=== PATIENT | female | born 1945 | race Caucasian/White ===

== ENCOUNTER → 2016-04-18 | Outpatient (CLI) | payer MEDICARE, OTHER ==
--- NOTE | 2016-04-19 07:52 | STRESS TEST ---
PROCEDURE PHYSICIAN: ANURAG RESENDIZ DATE OF PROCEDURE: 04/18/2016 EXERCISE STRESS ECHOCARDIOGRAM REPORT: REFERRING PHYSICIAN: Dr. Pastor. INDICATION: Chest pain. BASELINE HEART RATE: 91 BASELINE BLOOD PRESSURE: 150/100 BASELINE EKG: Sinus rhythm with no ischemic changes. IN SUMMARY: The patient started exercising with a baseline heart rate, blood pressure and EKG mentioned above. She was able to exercise for a total of 3 minutes and 30 seconds on standard Miguel protocol, achieving maximum heart rate of 146, which is 97% of maximum expected heart rate. With peak exercise level, EKG was showing minimal nondiagnostic changes. Blood pressure was 203/99. During recovery the patient had occasional PVCs. Heart rate and blood pressure returned to baseline. Echocardiographic images were acquired and reviewed in the parasternal long axis, short axis, apical 4 chamber and 2 chamber views. Review of the images showed normal left ventricular size with normal contractility with no ischemic changes. IN CONCLUSION: 1. Poor exercise tolerance a total of 3 minutes 30 seconds on standard Miguel protocol. Total of 4.6 METs achieving 97% of maximum expected heart rate. 2. Hypertensive response to exercise returned to baseline during recovery. 3. Occasional PVCs noted early in recovery. 4. No ischemic changes on EKG or echocardiographic images. 5. The patient was started on lisinopril in addition to her metoprolol. We will continue monitoring her blood pressure. Job ID: [id number] Dictated Date: 04/18/2016 17:54:44 Link Trainer Mechanic Date: 04/19/2016 07:48:46 / josh
--- NOTE | 2016-04-19 08:39 | ECHOCARDIOGRAPHY REPORT ---
PROCEDURE PHYSICIAN: ANURAG RESENDIZ DATE OF PROCEDURE: 04/18/2016 TWO DIMENSIONAL ECHOCARDIOGRAM REPORT PRIMARY PHYSICIAN: OTHER PHYSICIAN: REFERRING PHYSICIAN: Dr. Pastor ORDERING PHYSICIAN: INDICATION FOR THE PROCEDURE: Chest pain. MEASUREMENTS DERIVED VALUES LV DIAMETER (LAX) NORMALS NORMALS Diastolic 3.1 (3.6-5.2) Eject. Fract. 60% (60%+/-6%) Systolic (2.3-3.9) Diastolic Vol. % Shortening (0.22-0.42) Systolic Vol. Aortic Root IVS THICKNESS Diastolic 0.9 (0.6-1.1) LVPW THICKNESS Diastolic 0.9 (0.6-1.1) LA DIAMETER Systolic 2.8 (2.1-3.7) FINDINGS: 1. Technical quality is good. 2. The left ventricle is normal in size with normal contractility. Systolic function appeared to be normal. Estimated ejection fraction is 60%. 3. The left atrium is normal in size. No clot or thrombus were seen within the left atrium. 4. The right atrium and right ventricle are normal in size. No clot or thrombus were seen within the right side. 5. Mitral valve is normal in morphology with mild mitral regurgitation noted by color Doppler flow. No mitral valve prolapse. No mitral valve stenosis. 6. Aortic valve is trileaflet with normal opening and closing pattern. No significant aortic stenosis or regurgitation was seen. 7. Tricuspid valve is normal in morphology with mild tricuspid regurgitation noted by color Doppler flow. Doppler across tricuspid valve estimated pulmonary artery pressure of 32+ right atrial pressure. 8. Pulmonic valve is functioning normally. 9. No pericardial effusion. IN CONCLUSION: 1. Normal left ventricular size and systolic function. Estimated ejection fraction 60%. 2. Mild mitral and tricuspid regurgitation. 3. Pulmonary hypertension with estimated pulmonary artery pressure of 40 mmHg. Job ID: [id number] Dictated Date: 04/18/2016 17:52:44 Director Inpatient Headache Program Date: 04/19/2016 08:36:19 / josh
== END ==
LOC: CARD 13:01
PROVIDERS: ATTEND Physician Assistant
DX: R07.89 Other chest pain (principal); I10 Essential (primary) hypertension; R00.2 Palpitations; K21.9 Gastro-esophageal reflux disease without esophagitis
CPT/HCPCS: 93306; 93351

== ENCOUNTER → 2017-05-06 | Outpatient (CLI) | payer MEDICARE, OTHER ==
--- NOTE | 2017-05-07 15:17 | Physician Query-Final Dx ---
ADAN LOERA 05/07/17 1517: Clinic Account Progress/Dx Physician Query: Please give diagnosis Date of Service May 06, 2017 at 10:32 JESSY DELGADO DO 05/08/17 0703: Clinic Account Progress/Dx DIAGNOSIS: Diagnosis Vaginal infection ADAN LOERA May 07, 2017 15:17 JESSY DELGADO DO May 08, 2017 07:03
== END ==
LOC: LAB 10:32
PROVIDERS: ATTEND Family Medicine
DX: N76.0 Acute vaginitis (principal)
CPT/HCPCS: 36415; 87491; 87591

== ENCOUNTER → 2017-05-20 | Day surgery (SDC) | payer MEDICARE, OTHER ==
[2017-05-20] VITALS (10 sets, daily range): BP systolic 99–156; BP diastolic 60–89
[~2017-05-20] VITALS: Ht 165.1 cm; Wt 64.4 kg
[~2017-05-20] MED LIST: ALPR0.5T7; ASPIRIN 81 MG CHEW (CHILDREN'S ASA) PO ONE; FLUC150T2; HEParin (CATH LAB) 2,000 ML IV ONE; HEParin 1000 UNIT/ML (10ML VIAL) FOR BOLUS ONE; LIDOCAINE 1% INJ 50 ML (XYLOCAINE) VIAL ONE; METO-387; MIDAZOLAM 5 MG/5 ML (VERSED) VIAL ONE; NITRO DRIP 25000 MCG/D5W 0 ML IV ONE; NITROGLYCERIN 0.4 MG SL TABS BTL 25'S SL PRN; NS IV 1000 ML 1,000 ML IV SCH; NS IV 1000 ML 1,000 ML ONE; PANT40TA3; PATIENT MAY USE OWN MEDS, ALL PO SCH; SUCR1TAB; VERAPAMIL 5 MG/2 ML (CALAN) VIAL IV ONE; fentaNYL INJECTION 100 MCG/2 ML AMP ONE
[2017-05-20 07:58] LABS: BASOPHILS % (AUTO) 1 % (0-10); EOSINOPHILS # (AUTO) 0.2 10^3/uL (0.0-0.3); EOSINOPHILS % (AUTO) 2 % (0-10); HEMATOCRIT 45 % (35-52); HEMOGLOBIN 15.9 G/DL (11.5-16.0); LYMPHOCYTES # (AUTO) 1.9 X 10^3 (1.0-4.0); LYMPHOCYTES % (AUTO) 25 % (12-44); MEAN CORPUSCULAR HEMOGLOBIN 33 PG (25-34); MEAN CORPUSCULAR HGB CONC 35 G/DL (32-36); MEAN CORPUSCULAR VOLUME 93 FL (80-99); MEAN PLATELET VOLUME 10.1 FL (7.4-10.4); MONOCYTES # (AUTO) 0.9 X 10^3 (0.0-1.0); MONOCYTES % (AUTO) 12 % (0-12); NEUTROPHILS # (AUTO) 4.7 X 10^3 (1.8-7.8); NEUTROPHILS % (AUTO) 61 % (42-75); PLATELET COUNT 238 10^3/uL (130-400); RED BLOOD COUNT 4.88 10^6/uL (4.35-5.85); RED CELL DISTRIBUTION WIDTH 13.1 % (10.0-14.5); WHITE BLOOD COUNT 7.7 10^3/uL (4.3-11.0)
[2017-05-20 08:23] LABS: ALANINE AMINOTRANSFERASE 24 U/L (0-55); ALBUMIN 4.3 GM/DL (3.2-4.5); ALKALINE PHOSPHATASE 95 U/L (40-136); BILIRUBIN,TOTAL 0.5 MG/DL (0.1-1.0); BUN/CREATININE RATIO 22; CALCIUM 9.6 MG/DL (8.5-10.1); CARBON DIOXIDE 27 MMOL/L (21-32); CHLORIDE 104 MMOL/L (98-107); CREATININE SERUM 0.76 MG/DL (0.60-1.30); GFR ESTIMATED > 60; GLUCOSE 112 MG/DL (70-105); POTASSIUM 3.8 MMOL/L (3.6-5.0); SODIUM 138 MMOL/L (135-145); TOTAL PROTEIN 7.5 GM/DL (6.4-8.2)
[2017-05-20 09:04] LABS: BILIRUBIN,URINE NEGATIVE (NEGATIVE); CLARITY,URINE CLEAR; COLOR,URINE YELLOW; GLUCOSE, URINE (UA) NEGATIVE (NEGATIVE); KETONES,URINE NEGATIVE (NEGATIVE); LEUKOCYTE ESTERASE ,URINE 2+ (NEGATIVE); NITRITE,URINE NEGATIVE (NEGATIVE); PH,URINE 6 (5-9); PROTEIN,URINE NEGATIVE (NEGATIVE); UROBILINOGEN,URINE NORMAL (NORMAL)
[2017-05-20 09:27] LABS: BACTERIA,URINE FEW /HPF
[2017-05-20 10:46] LABS: TSH (THYROID ANALYZER) 0.65 UIU/ML (0.35-4.94)
--- NOTE | 2017-05-20 11:22 | ED Chest Pain ---
General Chief Complaint: Cardiac/General Problems Stated Complaint: BP HIGH,DIZZY Nursing Triage Note: pt reports she took her bp last night and it was elevated. pt states she woke up this morning and it was still elvated and she started to have dizziness, chest tightness, and l arm numbness. pt reports she is currently going through a divorce and having a lot of life changes recently. Nursing Sepsis Screen: No Definite Risk Source: patient, old records Exam Limitations: no limitations History of Present Illness Date Seen by Provider: May 20, 2017 Time Seen by Provider: 07:19 Initial Comments This 72-year-old woman presents to the emergency room with concerns about high blood pressure, chest discomfort, and dizziness. She reports being overly stressed recently as she has had a recent divorce. She takes metoprolol and had low certain added by sample given by Dr. Gr sometime ago. Last night her blood pressure was in the 160s/100s. She decided to resume the losartan. This morning she was feeling dizzy with tightness over her chest. She had tingling in the left arm. She rechecked her blood pressure and found it to be 174/120. She became concerned and presented to the emergency room. She also reports having a headache yesterday after mowing the lawn. She does admit to having 2-3 mixed drinks per night over the past couple of months. She states the tingling in her left arm is now gone her chest still feels tight. Dr. Delgado is her primary care provider and Dr. Gr is her set up machinist. Time of onset of pain this morning was 05:00. Allergies and Home Medications Allergies Coded Allergies: Penicillins (Unverified Allergy, Unknown, 07/29/15) levofloxacin (Unverified Allergy, Unknown, 07/29/15) sulfamethoxazole (Unverified Allergy, Unknown, 07/29/15) trimethoprim (Unverified Allergy, Unknown, 07/29/15) Patient Home Medication List Home Medication List Reviewed: Yes Review of Systems Constitutional: no symptoms reported EENTM: No Symptoms Reported Respiratory: No Symptoms Reported Cardiovascular: See HPI Gastrointestinal: No Symptoms Reported Genitourinary: No Symptoms Reported Musculoskeletal: no symptoms reported Skin: no symptoms reported Psychiatric/Neurological: See HPI Endocrine: No Symptoms Reported Past Oqzejqp-Qulphj-Vwupoc Hx Patient Social History Alcohol Use: Regular Use Alcohol Beverage of Choice: Vodka Recreational Drug Use: No Smoking Status: Current Someday Smoker Type Used: Cigarettes 2nd Hand Smoke Exposure: No Recent Foreign Travel: No Contact w/Someone Who Travel: No Recent Infectious Disease Expo: No Physical Abuse: No Sexual Abuse: No Mistreated: No Fear: No Surgeries History of Surgeries: Yes (cystocele, skin ca removal) Surgeries: Hysterectomy Respiratory History of Respiratory Disorde: No Cardiovascular History of Cardiac Disorders: Yes Cardiac Disorders: Hypertension Neurological History of Neurological Disord: No Reproductive System RN MANAGER History: Hysterectomy Genitourinary History of Genitourinary Disor: No Gastrointestinal History of Gastrointestinal Di: Yes Gastrointestinal Disorders: Gastroesophageal Reflux, Ulcer Musculoskeletal History of Musculoskeletal Dis: No Endocrine History of Endocrine Disorders: Yes (prediabetic controlled with diet) Cancer History of Cancer: Yes (skin excised from back) Cancer: Skin Psychosocial History of Psychiatric Problem: Yes Behavioral Health Disorders: Anxiety Suicide Risk Score: 0 Blood Transfusions History of Blood Disorders: No Adverse Reaction to a Blood Tr: No Physical Exam Vital Signs Vital Signs - First Documented 05/20/17 07:54 Temp 96.3 Pulse 75 Resp 20 B/P (MAP) 144/73 (96) Pulse Ox 98 Capillary Refill : Less Than 3 Seconds General Appearance: WD/WN, Mild Distress (Tearful and anxious) HEENT: PERRL/EOMI, Normal ENT Inspection Neck: Normal Inspection Respiratory: Chest Non Tender, Lungs Clear, Normal Breath Sounds, No Accessory Muscle Use, No Respiratory Distress Cardiovascular: Regular Rate, Rhythm, No Edema, No Murmur, Normal Peripheral Pulses Gastrointestinal: Normal Bowel Sounds, Non Tender, Soft Extremity: Normal Inspection, No Calf Tenderness, No Pedal Edema Neurologic/Psychiatric: Alert, Oriented x3, No Motor/Sensory Deficits, pre assembly wirer II- XII Norm as Tested, Other (Tearful and anxious) Skin: Normal Color, Warm/Dry Progress/Results/Core Measures Results/Orders Lab Results Laboratory Tests Test 05/20/17 07:36 05/20/17 08:54 Range/Units White Blood Count 7.7 4.3-11.0 10^3/uL Red Blood Count 4.88 4.35-5.85 10^6/uL Hemoglobin 15.9 11.5-16.0 G/DL Hematocrit 45 35-52 % Mean Corpuscular Volume 93 80-99 FL Mean Corpuscular Hemoglobin 33 25-34 PG Mean Corpuscular Hemoglobin Concent 35 32-36 G/DL Red Cell Distribution Width 13.1 10.0-14.5 % Platelet Count 238 130-400 10^3/uL Mean Platelet Volume 10.1 7.4-10.4 FL Neutrophils (%) (Auto) 61 42-75 % Lymphocytes (%) (Auto) 25 12-44 % Monocytes (%) (Auto) 12 0-12 % Eosinophils (%) (Auto) 2 0-10 % Basophils (%) (Auto) 1 0-10 % Neutrophils # (Auto) 4.7 1.8-7.8 X 10^3 Lymphocytes # (Auto) 1.9 1.0-4.0 X 10^3 Monocytes # (Auto) 0.9 0.0-1.0 X 10^3 Eosinophils # (Auto) 0.2 0.0-0.3 10^3/uL Basophils # (Auto) 0.0 0.0-0.1 10^3/uL Prothrombin Time 12.9 12.2-14.7 SEC INR Comment 1.0 0.8-1.4 Activated Partial Thromboplast Time 29 24-35 SEC Sodium Level 138 135-145 MMOL/L Potassium Level 3.8 3.6-5.0 MMOL/L Chloride Level 104 98-107 MMOL/L Carbon Dioxide Level 27 21-32 MMOL/L Anion Gap 7 5-14 MMOL/L Blood Urea Nitrogen 17 7-18 MG/DL Creatinine 0.76 0.60-1.30 MG/DL Estimat Glomerular Filtration Rate > 60 BUN/Creatinine Ratio 22 Glucose Level 112 H 70-105 MG/DL Calcium Level 9.6 8.5-10.1 MG/DL Magnesium Level 2.0 1.8-2.4 MG/DL Total Bilirubin 0.5 0.1-1.0 MG/DL Aspartate Amino Transf (AST/SGOT) 22 5-34 U/L Alanine Aminotransferase (ALT/SGPT) 24 0-55 U/L Alkaline Phosphatase 95 40-136 U/L Troponin I < 0.30 <0.30 NG/ML Total Protein 7.5 6.4-8.2 GM/DL Albumin 4.3 3.2-4.5 GM/DL TSH [place] Testing 0.65 0.35-4.94 UIU/ML Serum Alcohol < 10 <10 MG/DL Urine Color YELLOW Urine Clarity CLEAR Urine pH 6 5-9 Urine Specific [place] 1.010 L 1.016-1.022 Urine Protein NEGATIVE NEGATIVE Urine Glucose (UA) NEGATIVE NEGATIVE Urine Ketones NEGATIVE NEGATIVE Urine Nitrite NEGATIVE NEGATIVE Urine Bilirubin NEGATIVE NEGATIVE Urine Urobilinogen NORMAL NORMAL MG/DL Urine Leukocyte Esterase 2+ H NEGATIVE Urine RBC (Auto) 1+ H NEGATIVE Urine RBC 2-5 H /HPF Urine WBC 5-10 H /HPF Urine Squamous Epithelial Cells 10-25 H /HPF Urine Crystals NONE /LPF Urine Bacteria FEW H /HPF Urine Casts NONE /LPF Urine Mucus SMALL H /LPF Urine Culture Indicated YES Micro Results Microbiology 05/20/17 Urine Culture - Preliminary, Resulted Group B Streptococci Proteus species See Comments My Orders Orders - SHAHID ELENA MD Cbc With Automated Diff (05/20/17 07:19) Comprehensive Metabolic Panel (05/20/17 07:19) Magnesium (05/20/17 07:19) Ua Culture If Indicated (05/20/17 07:19) Saline Lock/Iv-Start (05/20/17 07:19) Ekg Tracing (05/20/17 07:19) Monitor-Rhythm Ecg Trace Only (05/20/17 07:19) Alcohol (05/20/17 08:52) Thyroid Analyzer (05/20/17 08:52) Troponin I (05/20/17 08:52) Urine Culture (05/20/17 08:54) Aspirin Chewable Tablet (Baby Aspirin Ch (05/20/17 11:15) Nitroglycerin 0.4 Mg Btl 25's (Nitrostat (05/20/17 11:15) Medications Given in ED Vital Signs/I&O Vital Sign - Last 12Hours 05/20/17 07:54 Temp 96.3 Pulse 75 Resp 20 B/P (MAP) 144/73 (96) Pulse Ox 98 Blood Pressure Mean: 96 Progress Note : Time: 11:21 Progress Note Workup in the emergency room was unremarkable. Blood pressure had improved to 130s over 80s. Dr. Gr was consulted to help determine disposition. He presented to the emergency room and nitroglycerin was administered. Pain improved with nitroglycerin. The decision was made to take her directly to cardiac Student Success Coach. ECG Initial ECG Impression Date: May 20, 2017 Initial ECG Impression Time: 07:36 Initial ECG Rate: 77 Initial ECG Rhythm: Normal Sinus Initial ECG Intervals: Normal Comment Normal sinus rhythm with no ST elevation or depression. No abnormal intervals or axis deviation. Departure Impression Impression: Primary Impression: Chest pain Qualified Codes: R07.9 - Chest pain, unspecified Additional Impression: Hypertension Qualified Codes: I10 - Essential (primary) hypertension Disposition: ADMITTED INPATIENT Condition: Improved Admissions Decision to Admit Reason: Admit from ER (General) Decision to Admit/Date: May 20, 2017 Time/Decision to Admit Time: 11:21 Departure-Patient Inst. Referrals: JESSY DELGADO DO (PCP/Family) Primary Care Physician Copy Copies To 1: ANURAG GR MD Copies To 2: JESSY DELGADO JOSHUA T MD May 20, 2017 11:22
--- NOTE | 2017-05-20 11:30 | Cardiology History & Physical ---
HPI-Cardiology Cardiology Consultation Date of Consultation 05/20/17 Date of Admission Time Seen by Provider: 11:26 Indication: Chest pain HPI 71 years old lady with history of hypertension, history of recurrent chest pain , has been under significant stress recently, went through a divorce. She is been having chest pain since last night described as dull achiness in the retrosternal area waxing and waning, blood pressure has been elevated. Came into the emergency room for evaluation. Upper my evaluation she was still having some pressure and tightness in the lower retrosternal area. After 2 sublingual nitroglycerin she reported improvement in her chest pain. She denied any palpitation, fever or chills, cough or shortness of breath. PMH-Cardiology Surgeries Yes (cystocele, skin ca removal) Respiratory No Cardiovascular Yes Neurological No Reproductive System Hysterectomy Genitourinary No Gastrointestinal Yes Gastroesophageal Reflux, Ulcer Musculoskeletal No Endocrine Yes (prediabetic controlled with diet) Cancer Yes (skin) Skin Psychosocial Yes Anxiety Blood Transfusions No Adverse Rxn to Transfusion: No Other PMHx Past history is discussed below Social History Patient Social History Marrital Status: Employed/Student: employed Alcohol Use: Regular Use Recreational Drug Use: No Smoking: Current every day smoker Recent Foreign Travel: No Contact w/other who traveled: No Recent Infectious Disease Expo: No Family Hx Other Non contributory ROS-Cardiology Review of Systems General: No Chills, No Night Sweats, No Fatigue, No Malaise, No Appetite HEENT: No Head Aches, No Visual Changes, No Eye Pain, No Ear Pain, No Dysphasia , No Sinus Congestion, No Post Nasal Drip, No Sore Throat Pulmonary: No Dyspnea, No Cough, No Pleuritic Chest Pain Cardiovascular: Chest Pain, No: Palpitations, Orthopnea, Paroxysmal Noc. Dyspnea, Edema, Lt Headedness Gastrointestinal: No: Nausea, Vomiting, Abdominal Pain, Diarrhea, Constipation , Melena, Hematochezia Genitourinary: No Dysuria, No Frequency, No Incontinence, No Hematuria, No Retention Musculoskeletal: No: neck pain, shoulder pain, arm pain, back pain, hand pain, leg pain, foot pain Neurological: No: Weakness, Numbness, Incoordination, Change in speech, Confusion, Seizures Home Medications & Allergies Allergies: Coded Allergies: Penicillins (Unverified Allergy, Unknown, 07/29/15) levofloxacin (Unverified Allergy, Unknown, 07/29/15) sulfamethoxazole (Unverified Allergy, Unknown, 07/29/15) trimethoprim (Unverified Allergy, Unknown, 07/29/15) Home Medication List Reviewed: Yes Exam-Cardiology Vital Signs Vital Signs Date Time Temp Pulse Resp B/P (MAP) Pulse Ox O2 Delivery O2 Flow Rate FiO2 05/20/17 07:54 96.3 75 20 144/73 (96) 98 Exam General Appearance: Alert, Oriented X3, Cooperative, No Acute Distress HEENT: Atraumatic, PERRLA Respiratory: Clear to Auscultation, Normal Air Movement Cardiovascular: Regular Rate, Normal S1, Normal S2, No Murmurs Abdominal: Normal Bowel Sounds, Soft, No Tenderness, No Hepatosplenomegaly, No Masses Extremities: No Clubbing, No Cyanosis, No Edema, Normal Pulses, No Tenderness/ Swelling Skin: No Rashes, No Breakdown, No Significant Lesion Neuro: Normal Gait, Normal Speech, Strength at 5/5 X4 Ext, Normal Tone, Sensation Intact Psych/Mental Status: Mental Status NL, Mood NL Results Labs Labs Laboratory Tests 05/20/17 07:36: White Blood Count 7.7, Red Blood Count 4.88, Hemoglobin 15.9, Hematocrit 45, Mean Corpuscular Volume 93, Mean Corpuscular Hemoglobin 33, Mean Corpuscular Hemoglobin Concent 35, Red Cell Distribution Width 13.1, Platelet Count 238, Mean Platelet Volume 10.1, Neutrophils (%) (Auto) 61, Lymphocytes (%) (Auto) 25 , Monocytes (%) (Auto) 12, Eosinophils (%) (Auto) 2, Basophils (%) (Auto) 1, Neutrophils # (Auto) 4.7, Lymphocytes # (Auto) 1.9, Monocytes # (Auto) 0.9, Eosinophils # (Auto) 0.2, Basophils # (Auto) 0.0, Sodium Level 138, Potassium Level 3.8, Chloride Level 104, Carbon Dioxide Level 27, Anion Gap 7, Blood Urea Nitrogen 17, Creatinine 0.76, Estimat Glomerular Filtration Rate > 60, BUN/ Creatinine Ratio 22, Glucose Level 112H, Calcium Level 9.6, Magnesium Level 2.0 , Total Bilirubin 0.5, Aspartate Amino Transf (AST/SGOT) 22, Alanine Aminotransferase (ALT/SGPT) 24, Alkaline Phosphatase 95, Troponin I < 0.30, Total Protein 7.5, Albumin 4.3, TSH [place] Testing 0.65, Serum Alcohol < 10 05/20/17 08:54: Urine Color YELLOW, Urine Clarity CLEAR, Urine pH 6, Urine Specific [place] 1.010L, Urine Protein NEGATIVE, Urine Glucose (UA) NEGATIVE, Urine Ketones NEGATIVE, Urine Nitrite NEGATIVE, Urine Bilirubin NEGATIVE, Urine Urobilinogen NORMAL, Urine Leukocyte Esterase 2+H, Urine RBC (Auto) 1+H, Urine RBC 2-5H, Urine WBC 5-10H, Urine Squamous Epithelial Cells 10-25H, Urine Crystals NONE, Urine Bacteria FEWH, Urine Casts NONE, Urine Mucus SMALLH, Urine Culture Indicated YES A/P-Cardiology Admission Diagnosis Chest pain nonspecific etiology Coronary artery disease Hypertension Hyperlipidemia Tobaccoism Admission Status: Observation Assessment/Plan Chest pain, nonspecific etiology, stress test was done in April 2016 showing poor exercise tolerance with hypertensive heart disease and hypertensive response to exercise, no ischemia or infarction. Reporting improvement after receiving sublingual nitroglycerin. Patient has been under increasing stress recently. EKG did not show any acute changes. I'm planning to proceed with cardiac catheterization possible PTCA Hypertension, noncompliant with medication, I will start her back on low-dose beta blockers and evaluate tolerance and response. Recurrent palpitation, anxiety, continue to monitor Hyperlipidemia, monitor lipids. Gastroesophageal reflux disease-maintained on Protonix and Carafate. Patient reports history of ulcers in the past. Unable to tolerate aspirin. Anxiety/depression Tobaccoism- educated on the importance of smoking cession Mild bilateral carotid stenosis, ultrasound was done in March 2016. Continue to monitor ANURAG RESENDIZ MD May 20, 2017 11:30
--- NOTE | 2017-05-20 11:31 | Cardiac Procedure Note-CS/ASA ---
Pre-Procedure Note Pre-Op Procedure Note H&P Reviewed The H&P was reviewed, patient examined and no changes noted. Date H&P Reviewed: May 20, 2017 Time H&P Reviewed: 11:31 Conscious Sedation Pre-Proced Time Reviewed: :31 ASA Class: 3 Airway Mallampati Classification: ([place] appropriate class) I. II. III, IV Lungs Heart ASA score ASA 1: a normal healthy patient ASA 2: a patient with a mild systemic disease (mid diabetes, controlled hypertension, obesity x ASA 3: a patient with a severe systemic disease that limits activity (angina , COPD, prior Myocardial infarction) ASA 4: a patient with an incapacitating disease that is a constant threat to life (CHF, renal failure) ASA 5: a moribund patient not expected to survive 24 hrs. (ruptured aneurysm) ASA 6: a declared brain patient whose organs are being harvested. For emergent operations, add the letter E after the classification Grade 3 Sedation Plan: Analgesia, Amnesia, Plan communicated to team members, Discussed options with patient/fam, Discussed risks with patient/fam Note The patient is an appropriate candidate to undergo the planned procedure, sedation, and anesthesia. The patient immediately re-assessed prior to indication. ANURAG RESENDIZ MD May 20, 2017 11:31
[2017-05-20 11:49] LABS: PROTHROMBIN TIME PATIENT 12.9 SEC (12.2-14.7)
--- OUTSIDE RECORDS SUMMARY | 2017-05-20 11:52 | XMS REPORT | Continuity of Care Document ---
Author Author [facility] Organization [facility] Address Unknown Phone Unavailable Allergies Active Description Code Type Severity Reaction Onset Reported/Identified Relationship to Patient Clinical Status Yes levofloxacin [id number] Drug Allergy Unknown N/A 07/29/2015 Yes Penicillins [id number] Drug Allergy Unknown N/A 07/29/2015 Yes sulfamethoxazole [id number] Drug Allergy Unknown N/A 07/29/2015 Yes trimethoprim [id number] Drug Allergy Unknown N/A 07/29/2015 Medications There is no data. Problems Date Dx Coded Attending Type Code Diagnosis Diagnosed By 07/29/2015 NORM AVILA MD Ot R10.11 RIGHT UPPER QUADRANT PAIN 08/02/2015 ONRM AVILA MD Ot R10.11 RIGHT UPPER QUADRANT PAIN 08/19/2015 NORM AVILA MD Ot R10.11 RIGHT UPPER QUADRANT PAIN 08/19/2015 NORM AVILA MD Ot R10.11 RIGHT UPPER QUADRANT PAIN 08/22/2015 GELLENDER DO, JESSY A Ot R10.10 UPPER ABDOMINAL PAIN, UNSPECIFIED 08/26/2015 NORM AVILA MD Ot R10.11 RIGHT UPPER QUADRANT PAIN 09/09/2015 GELLENDER DO, JESSY Matos Ot K76.0 FATTY (CHANGE OF) LIVER, NOT ELSEWHERE C 09/09/2015 GELLENDER DO, JESSY A Ot R10.10 UPPER ABDOMINAL PAIN, UNSPECIFIED 09/13/2015 GELLENDER DO, JESSY A Ot K76.0 FATTY (CHANGE OF) LIVER, NOT ELSEWHERE C 09/13/2015 GELLENDER DO, JESSY A Ot R10.10 UPPER ABDOMINAL PAIN, UNSPECIFIED 04/17/2016 NORM AVILA MD Ot R10.11 RIGHT UPPER QUADRANT PAIN 04/17/2016 GELLENDER DO, JESSY A Ot K76.0 FATTY (CHANGE OF) LIVER, NOT ELSEWHERE C 04/17/2016 KAURLENDER DO, JESSY A Ot R10.10 UPPER ABDOMINAL PAIN, UNSPECIFIED 04/17/2016 AUSTIN GODINEZ, NORM Matos Ot R10.11 RIGHT UPPER QUADRANT PAIN 04/17/2016 DANNY DO, JESSY Matos Ot K76.0 FATTY (CHANGE OF) LIVER, NOT ELSEWHERE C 04/17/2016 KAURLENDER DO, JESSY Matos Ot R10.10 UPPER ABDOMINAL PAIN, UNSPECIFIED 04/19/2016 LEMONS-ALEJANDRO PA, KATY K Ot I10 ESSENTIAL (PRIMARY) HYPERTENSION 04/19/2016 LEMONS-ALEJANDRO PA, KATY K Ot K21.9 GASTRO-ESOPHAGEAL REFLUX DISEASE WITHOUT 04/19/2016 LEMONS-ALEJANDRO PA, KATY K Ot R00.2 PALPITATIONS 04/19/2016 LEMONS-ALEJANDRO PA, KATY K Ot R07.89 OTHER CHEST PAIN 04/19/2016 LEMONS-ALEJANDRO PA, KATY K Ot I10 ESSENTIAL (PRIMARY) HYPERTENSION 04/19/2016 LEMONS-ALEJANDRO PA, KATY K Ot K21.9 GASTRO-ESOPHAGEAL REFLUX DISEASE WITHOUT 04/19/2016 LEMONS-ALEJANDRO PA, KATY K Ot R00.2 PALPITATIONS 04/19/2016 LEMONS-ALEJANDRO PA, KATY K Ot R07.89 OTHER CHEST PAIN 05/15/2016 LEMONS-ALEJANDRO PA, KATY K Ot I10 ESSENTIAL (PRIMARY) HYPERTENSION 05/15/2016 LEMONS-ALEJANDRO PA, KATY K Ot K21.9 GASTRO-ESOPHAGEAL REFLUX DISEASE WITHOUT 05/15/2016 LEMONS-ALEJANDRO PA, KATY K Ot R00.2 PALPITATIONS 05/15/2016 LEMONS-ALEJANDRO PA, KATY K Ot R07.89 OTHER CHEST PAIN 05/28/2016 LEMONS-ALEJANDRO PA, KATY K Ot I10 ESSENTIAL (PRIMARY) HYPERTENSION 05/28/2016 LEMONS-ALEJANDRO PA, KATY K Ot K21.9 GASTRO-ESOPHAGEAL REFLUX DISEASE WITHOUT 05/28/2016 LEMONS-ALEJANDRO PA, KATY K Ot R00.2 PALPITATIONS 05/28/2016 LEMONS-ALEJANDRO PA, KATY K Ot R07.89 OTHER CHEST PAIN 05/06/2017 AUSTIN GODINEZ, NORM Matos Ot R10.11 RIGHT UPPER QUADRANT PAIN 05/06/2017 DANNY DO, JESSY Matos Ot K76.0 FATTY (CHANGE OF) LIVER, NOT ELSEWHERE C 05/06/2017 JESSY DELGADO DO Ot R10.10 UPPER ABDOMINAL PAIN, UNSPECIFIED 05/06/2017 KATY GUADARRAMA Ot I10 ESSENTIAL (PRIMARY) HYPERTENSION 05/06/2017 KATY GUADARRAMA Ot K21.9 GASTRO-ESOPHAGEAL REFLUX DISEASE WITHOUT 05/06/2017 KATY GUADARRAMA Ot R00.2 PALPITATIONS 05/06/2017 KATY GUADARRAMA Ot R07.89 OTHER CHEST PAIN 05/15/2017 Ot N76.0 ACUTE VAGINITIS Procedures There is no data. Results Test Result Range Urine Neisseria gonorrhoeae DNA assay - 05/06/17 10:45 Gonorrhea amp DNA-urine Not Detected Not Detected Chlamydia DNA amp probe, urine - 05/06/17 10:45 Chlamydia DNA amp probe, urine Not Detected Not Detected Encounters ACCT No. Visit Date/Time Discharge Status Pt. Type Provider Facility Loc./Unit Complaint [id number] 04/18/2016 13:01:00 04/18/2016 23:59:59 CLS Outpatient KATY GUADARRAMA [facility] CARD CHEST PAIN SYNDROME,HTN,PALPITATIONS [id number] 08/19/2015 08:26:00 08/19/2015 23:59:59 CLS Outpatient JESSY DELGADO DO [facility] RAD ABD PAIN IN UPPER ABD FOR 6 MNTHS [id number] 07/29/2015 09:23:00 07/29/2015 23:59:59 CLS Outpatient NORM AVILA MD [facility] CARD RUQ PAIN [id number] 05/06/2017 10:45:00 Document Registration
--- NOTE | 2017-05-20 12:30 | Discharge Inst-Post CATH ---
Discharge Inst-CATH Post Cardiac Cath D/C Inst Follow Up/Plan Appointment with Dr. Gr's office in 2-4 weeks CARDIAC CATH DISCHARGE INSTRUCTIONS *Hold Metformin for 48 hours post heart cath. ACTIVITY * Go Home directly and rest. * Limit activity of the leg (or wrist if it was used) for 7 days including aerobics, swimming, jogging, bicycling, etc. * Restrict stair-climbing for 7 days if possible, if not, climb up with your non -cath leg, then bring together on the same step. * Avoid lifting, pushing, pulling or excessive movement of the affected extremity for 7 days. * Customary sexual activity may be resumed after 2 days-use caution not to use a position that strains or causes pain to the affected extremity. * No driving for 24 hours. * NO SMOKING. * Avoid straining for bowel movements for 7 days. * Gentle walking on level ground is allowed. * Returning to work will depend on the type of procedure and the results. Your doctor will discuss this with you. CALL YOUR DOCTOR FOR ANY OF THE FOLLOWING: *If bleeding from the puncture site occurs- Apply gentle pressure to site with clean cloth and call your doctor or EMS. * If a knot or lump forms under the skin, increases in size, or causes pain. * If bruising appears to be worsening or moving further down your leg instead of disappearing. * Temperature above 101 F. CARE OF YOUR GROIN INCISION; * Bruising or purple discoloration of the skin near the puncture site is common. * You may shower only, no bathtub bathing for 5 days. Be careful to avoid slipping as your leg may feel stiff. * If a closure device was used on your femoral artery, please see the attached guide regarding care of the device and your leg. * REMOVE the dressing from your groin the next day after your procedure in the shower. CARE OF YOUR WRIST INCISION; * Bruising or purple discoloration of the skin near the puncture site is common. * You may shower. * DO NOT submerge wrist. * Remove dressing in 24 hours. ANURAG GR MD May 20, 2017 12:30
--- NOTE | 2017-05-20 12:34 | Cardiac Cath Report ---
Cardiac Cath Report Physician (s)/[employer]ine [employer] Professor (s) Physician ANURAG RESENDIZ MD Pre-Procedure Diagnosis Pre-Procedure Diagnosis: Chest pain Post-Procedure Note Procedure Start Date: May 20, 2017 Name of Procedure: Left heart catheter Left ventricular gram Aortic arch angiogram Findings/Procedure Note PROCEDURE NOTE: 71 years old lady with history of hypertension, had significant chest pain, has been under increasing stress recently. Chest pain has improved with sublingual nitroglycerin with severely hypertensive. I decided to proceed with left heart catheterization, cardiac catheterization showed mild coronary artery disease and evaluate aortic arch angiogram After explaining the procedure to the patient, all pros and cons were explained, all questions were answered. The patient signed the consent and then she was placed on the cardiac catheterization laboratory. The patient was placed on the cardiac catheterization laboratory. Groin was prepped SL fashion local anesthesia was used. Sheath placed in the Right femoral artery. Kasi right and left catheter were used to access the coronary system. Pigtail was used to access the left ventricular cavity. Left ventriculogram was done Aortic arch angiogram was done At the end of the procedure the sheath was removed. Closure device was used FINDINGS: Hemodynamics LV 103/11, end-diastolic pressure of 11 Aorta 108/62 mean of 81 ANATOMY: Left Main is free of obstructive disease Left Anterior Descending has mild disease nonobstructive disease Left Circumflex has mild disease with no obstructive disease Right Coronory Artery has mild disease with no obstructive disease LV Gram was done, left ventricular is normal in size with normal contractility, estimated ejection fraction 60 percent Aorta evaluation done with aortic arch angiogram showing normal aortic arch, no dissection or aneurysm, origin of the great neck vessels appeared normal. CONCLUSION: 1. Mild coronary artery disease nonobstructive disease 2. Normal left ventricle size and systolic function test and ejection fraction 60 percent 3. Normal aortic arch and great neck vessels DISCUSSION AND RECOMMENDATION: I will continue monitoring as an outpatient, patient is discharged home today Anesthesia Type: Conscious Sedation Estimated blood loss (mL): 10 ml Contrast Amount: 54 ml Total Radiation Dose: 139 mGy Post-Procedure Diagnosis Post-operative diagnosis: Chest pain nonspecific etiology Hypertension Anxiety Coronary artery disease ANURAG RESENDIZ MD May 20, 2017 12:34
== END | disposition home or self-care (01) ==
LOC: EDUNIT# 07:14 → ER 07:15 → CATH 11:22 → SURG 12:49
PROVIDERS: ATTEND Internal Medicine Cardiovascular Disease
DX: I25.10 Atherosclerotic heart disease of native coronary artery without angina pectoris (principal); R07.9 Chest pain, unspecified; I10 Essential (primary) hypertension; F41.9 Anxiety disorder, unspecified; K21.9 Gastro-esophageal reflux disease without esophagitis; R73.03 Prediabetes; Z88.0 Allergy status to penicillin; Z88.1 Allergy status to other antibiotic agents; Z88.2 Allergy status to sulfonamides; Z91.14 Patient's other noncompliance with medication regimen; R00.2 Palpitations; E78.5 Hyperlipidemia, unspecified; F32.9 Major depressive disorder, single episode, unspecified; I65.23 Occlusion and stenosis of bilateral carotid arteries; F17.210 Nicotine dependence, cigarettes, uncomplicated
CPT/HCPCS: 36221; 36415; 80053; 80320; 81000; 83735; 84443; 84484; 85025; 85610; 85730; 87088; 93005; 93041; 93458

== ENCOUNTER → 2017-05-23 | Outpatient (CLI) | payer MEDICARE, OTHER ==
[~2017-05-23] MED LIST changes: -ASPIRIN 81 MG CHEW (CHILDREN'S ASA) PO ONE; -HEParin (CATH LAB) 2,000 ML IV ONE; -HEParin 1000 UNIT/ML (10ML VIAL) FOR BOLUS ONE; -LIDOCAINE 1% INJ 50 ML (XYLOCAINE) VIAL ONE; -MIDAZOLAM 5 MG/5 ML (VERSED) VIAL ONE; -NITRO DRIP 25000 MCG/D5W 0 ML IV ONE; -NITROGLYCERIN 0.4 MG SL TABS BTL 25'S SL PRN; -NS IV 1000 ML 1,000 ML IV SCH; -NS IV 1000 ML 1,000 ML ONE; -PATIENT MAY USE OWN MEDS, ALL PO SCH; -VERAPAMIL 5 MG/2 ML (CALAN) VIAL IV ONE; -fentaNYL INJECTION 100 MCG/2 ML AMP ONE
--- NOTE | 2017-05-23 16:08 | Diagnostic Imaging Report ---
INDICATION: Right groin pain. Patient is status post recent heart catheterization. EXAMINATION: Sonography of the right groin was performed. FINDINGS: Right common femoral artery and vein are unremarkable. No AV fistula is seen. No hematoma or pseudoaneurysm is detected. The proximal right SFA is patent. IMPRESSION: Unremarkable right groin ultrasound. Dictated by: Dictated on workstation # [id number]
== END ==
LOC: RAD 14:31
PROVIDERS: ATTEND Internal Medicine Cardiovascular Disease
DX: I97.610 Postprocedural hemorrhage of a circulatory system organ or structure following a cardiac catheterization (principal); Z98.890 Other specified postprocedural states
CPT/HCPCS: 93926

== ENCOUNTER → 2017-06-19 | Outpatient (CLI) | payer MEDICARE, OTHER ==
[2017-06-19 17:32] LABS: BASOPHILS % (AUTO) 1 % (0-10); EOSINOPHILS # (AUTO) 0.2 10^3/uL (0.0-0.3); EOSINOPHILS % (AUTO) 2 % (0-10); HEMATOCRIT 47 % (35-52); HEMOGLOBIN 15.9 G/DL (11.5-16.0); LYMPHOCYTES # (AUTO) 2.4 X 10^3 (1.0-4.0); LYMPHOCYTES % (AUTO) 28 % (12-44); MEAN CORPUSCULAR HEMOGLOBIN 32 PG (25-34); MEAN CORPUSCULAR HGB CONC 34 G/DL (32-36); MEAN CORPUSCULAR VOLUME 95 FL (80-99); MEAN PLATELET VOLUME 9.9 FL (7.4-10.4); MONOCYTES % (AUTO) 12 % (0-12); NEUTROPHILS % (AUTO) 58 % (42-75); PLATELET COUNT 217 10^3/uL (130-400); RED CELL DISTRIBUTION WIDTH 12.8 % (10.0-14.5); WHITE BLOOD COUNT 8.6 10^3/uL (4.3-11.0)
--- NOTE | 2017-06-19 17:38 | Diagnostic Imaging Report ---
INDICATION: Cough, congestion, and dyspnea for two weeks. PA and lateral views of the chest are obtained. COMPARISON: No previous study is available for comparison at this time. FINDINGS: Heart size and pulmonary vasculature are within normal limits, and the lungs are clear, bilaterally. IMPRESSION: Unremarkable chest. Dictated by: Dictated on workstation # [id number]
== END ==
LOC: RAD 16:55
PROVIDERS: ATTEND Family Medicine
DX: R09.89 Other specified symptoms and signs involving the circulatory and respiratory systems (principal); R05 Cough; R06.00 Dyspnea, unspecified
CPT/HCPCS: 36415; 71046; 85025

== ENCOUNTER 2017-11-29 12:05 | Emergency (ER) | payer MEDICARE, OTHER ==
[~2017-11-29] VITALS: Ht 167.6 cm; Wt 67.1 kg
[2017-11-29] MEDS ORDERED: ORPHENADRINE 60 MG/2 ML (NORFLEX) AMP ONE (12:10)
--- OUTSIDE RECORDS SUMMARY | 2017-11-29 12:10 | XMS REPORT | Continuity of Care Document ---
Author Author [facility] Organization [facility] Address Unknown Phone Unavailable Allergies Active Description Code Type Severity Reaction Onset Reported/Identified Relationship to Patient Clinical Status Yes levofloxacin [id number] Drug Allergy Unknown N/A 07/29/2015 Yes Penicillins [id number] Drug Allergy Unknown N/A 07/29/2015 Yes sulfamethoxazole [id number] Drug Allergy Unknown N/A 07/29/2015 Yes trimethoprim [id number] Drug Allergy Unknown N/A 07/29/2015 Medications There is no data. Problems Date Dx Coded Attending Type Code Diagnosis Diagnosed By 07/29/2015 NORM AVILA MD Ot R10.11 RIGHT UPPER QUADRANT PAIN 08/02/2015 NORM AVILA MD Ot R10.11 RIGHT UPPER [...] UPPER QUADRANT PAIN 04/17/2016 GELLENDER DO, JESSY Matos Ot K76.0 FATTY [...] CHEST PAIN 05/15/2017 Ot N76.0 ACUTE VAGINITIS 05/20/2017 ANURAG RESENDIZ MD Ot E78.5 HYPERLIPIDEMIA, UNSPECIFIED 05/20/2017 ANURAG RESENDIZ MD Ot F17.210 NICOTINE DEPENDENCE, CIGARETTES, UNCOMPL 05/20/2017 ANURAG RESENDIZ MD Ot F32.9 MAJOR DEPRESSIVE DISORDER, SINGLE EPISOD 05/20/2017 ANURAG RESENDIZ MD Ot F41.9 ANXIETY DISORDER, UNSPECIFIED 05/20/2017 ANURAG RESENDIZ MD Ot I10 ESSENTIAL (PRIMARY) HYPERTENSION 05/20/2017 ANURAG RESENDIZ MD Ot I25.10 ATHSCL HEART DISEASE OF [place] CORONARY 05/20/2017 ANURAG RESENDIZ MD Ot I65.23 OCCLUSION AND STENOSIS OF BILATERAL STRE[address] 05/20/2017 ANURAG RESENDIZ MD Ot K21.9 GASTRO-ESOPHAGEAL REFLUX DISEASE WITHOUT 05/20/2017 ANURAG RESENDIZ MD Ot R00.2 PALPITATIONS 05/20/2017 ANURAG RESENDIZ MD Ot R07.9 CHEST PAIN, UNSPECIFIED 05/20/2017 ANURAG RESENDIZ MD Ot R73.03 PREDIABETES 05/20/2017 ANURAG RESENDIZ MD Ot Z88.0 ALLERGY STATUS TO PENICILLIN 05/20/2017 ANURAG RESENDIZ MD Ot Z88.1 ALLERGY STATUS TO OTHER ANTIBIOTIC AGENT 05/20/2017 ANURAG RESENDIZ MD Ot Z88.2 ALLERGY STATUS TO SULFONAMIDES STATUS 05/20/2017 ANURAG RESENDIZ MD Ot Z91.14 PATIENT'S OTHER NONCOMPLIANCE WITH MEDIC 05/23/2017 ANURAG RESENDIZ MD Ot I97.610 POSTPROC HEMOR OF A CIRC SYS ORG FOLLOWI 05/24/2017 ANURAG RESENDIZ MD Ot I97.610 POSTPROC HEMOR OF A CIRC SYS ORG FOLLOWI 05/24/2017 ANURAG RESENDIZ MD Ot Z98.890 OTHER SPECIFIED POSTPROCEDURAL STATES 05/30/2017 ANURAG RESENDIZ MD Ot E78.5 HYPERLIPIDEMIA, UNSPECIFIED 05/30/2017 ANURAG RESENDIZ MD Ot F17.210 NICOTINE DEPENDENCE, CIGARETTES, UNCOMPL 05/30/2017 ANURAG RESENDIZ MD Ot F32.9 MAJOR DEPRESSIVE DISORDER, SINGLE EPISOD 05/30/2017 ANURAG RESENDIZ MD Ot F41.9 ANXIETY DISORDER, UNSPECIFIED 05/30/2017 ANURAG RESENDIZ MD Ot I10 ESSENTIAL (PRIMARY) HYPERTENSION 05/30/2017 ANURAG RESENDIZ MD Ot I25.10 ATHSCL HEART DISEASE OF [place] CORONARY 05/30/2017 ANUARG RESENDIZ MD Ot I65.23 OCCLUSION AND STENOSIS OF [address]ATER[address] STRE[address] 05/30/2017 ANURAG RESENDIZ MD Ot K21.9 GASTRO-ESOPHAGEAL REFLUX DISEASE WITHOUT 05/30/2017 ANURAG RESENDIZ MD Ot R00.2 PALPITATIONS 05/30/2017 ANURAG RESENDIZ MD Ot R07.9 CHEST PAIN, UNSPECIFIED 05/30/2017 ANURAG RESENDIZ MD Ot R73.03 PREDIABETES 05/30/2017 ANURAG REESNDIZ MD Ot Z88.0 ALLERGY STATUS TO PENICILLIN 05/30/2017 ANURAG RESENDIZ MD Ot Z88.1 ALLERGY STATUS TO OTHER ANTIBIOTIC AGENT 05/30/2017 ANURAG RESENDIZ MD Ot Z88.2 ALLERGY STATUS TO SULFONAMIDES STATUS 05/30/2017 ANURAG RESENDIZ MD Ot Z91.14 PATIENT'S OTHER NONCOMPLIANCE WITH MEDIC 05/31/2017 Ot N76.0 ACUTE VAGINITIS 06/19/2017 ANURAG RESENDIZ MD Ot I97.610 POSTPROC HEMOR OF A CIRC SYS ORG FOLLOWI 06/19/2017 ANURAG RESENDIZ MD Ot Z98.890 OTHER SPECIFIED POSTPROCEDURAL STATES 06/20/2017 GELLENDER DO, JESSY A Ot R05 COUGH 06/20/2017 GELLENDER DO, JESSY Carlo Ot R06.00 DYSPNEA, UNSPECIFIED 06/20/2017 GELLENDER DO, JESSY Carlo Ot R09.89 OTH SYMPTOMS AND SIGNS INVOLVING THE CIR 07/09/2017 GELLENDER DO, JESSY Matos Ot R05 COUGH 07/09/2017 GELLENDER DO, JESSY Matos Ot R06.00 DYSPNEA, UNSPECIFIED 07/09/2017 GELLENDER DO, JESSY Matos Ot R09.89 OTH SYMPTOMS AND SIGNS INVOLVING THE CIR 07/12/2017 GELLENDER DO, JESSY Matos Ot R05 COUGH 07/12/2017 GELLENDER DO, JESSY Matos Ot R06.00 DYSPNEA, UNSPECIFIED 07/12/2017 GELLENDER DO, JESSY Matos Ot R09.89 OTH SYMPTOMS AND SIGNS INVOLVING THE CIR Procedures There is no data. Results Test Result Range Urine Neisseria gonorrhoeae DNA assay - 05/06/17 10:45 Gonorrhea amp DNA-urine Not Detected Not Detected Chlamydia DNA amp probe, urine - 05/06/17 10:45 Chlamydia DNA amp probe, urine Not Detected Not Detected Complete blood count (CBC) with automated white blood cell (WBC) differential - 05/20/17 07:36 Blood leukocytes automated count (number/volume) 7.7 10*3/uL 4.3-11.0 Blood erythrocytes automated count (number/volume) 4.88 10*6/uL 4.35-5.85 Venous blood hemoglobin measurement (mass/volume) 15.9 g/dL 11.5-16.0 Blood hematocrit (volume fraction) 45 % 35-52 Automated erythrocyte mean corpuscular volume 93 [foz_us] 80-99 Automated erythrocyte mean corpuscular hemoglobin (mass per erythrocyte) 33 pg 25-34 Automated erythrocyte mean corpuscular hemoglobin concentration measurement ( mass/volume) 35 g/dL 32-36 Automated erythrocyte distribution width ratio 13.1 % 10.0-14.5 Automated blood platelet count (count/volume) 238 10*3/uL 130-400 Automated blood platelet mean volume measurement 10.1 [foz_us] 7.4-10.4 Automated blood neutrophils/100 leukocytes 61 % 42-75 Automated blood lymphocytes/100 leukocytes 25 % 12-44 Blood monocytes/100 leukocytes 12 % 0-12 Automated blood eosinophils/100 leukocytes 2 % 0-10 Automated blood basophils/100 leukocytes 1 % 0-10 Blood neutrophils automated count (number/volume) 4.7 10*3 1.8-7.8 Blood lymphocytes automated count (number/volume) 1.9 10*3 1.0-4.0 Blood monocytes automated count (number/volume) 0.9 10*3 0.0-1.0 Automated eosinophil count 0.2 10*3/uL 0.0-0.3 Automated blood basophil count (count/volume) 0.0 10*3/uL 0.0-0.1 Comprehensive metabolic panel - 05/20/17 07:36 Serum or plasma sodium measurement (moles/volume) 138 mmol/L 135-145 Serum or plasma potassium measurement (moles/volume) 3.8 mmol/L 3.6-5.0 Serum or plasma chloride measurement (moles/volume) 104 mmol/L 98-107 Carbon dioxide 27 mmol/L 21-32 Serum or plasma anion gap determination (moles/volume) 7 mmol/L 5-14 Serum or plasma urea nitrogen measurement (mass/volume) 17 mg/dL 7-18 Serum or plasma creatinine measurement (mass/volume) 0.76 mg/dL 0.60-1.30 Serum or plasma urea nitrogen/creatinine mass ratio 22 NRG Serum or plasma creatinine measurement with calculation of estimated glomerular filtration rate > NRG Serum or plasma glucose measurement (mass/volume) 112 mg/dL 70-105 Serum or plasma calcium measurement (mass/volume) 9.6 mg/dL 8.5-10.1 Serum or plasma total bilirubin measurement (mass/volume) 0.5 mg/dL 0.1-1.0 Serum or plasma alkaline phosphatase measurement (enzymatic activity/volume) 95 U/L 40-136 Serum or plasma aspartate aminotransferase measurement (enzymatic activity/ volume) 22 U/L 5-34 Serum or plasma alanine aminotransferase measurement (enzymatic activity/volume ) 24 U/L 0-55 Serum or plasma protein measurement (mass/volume) 7.5 g/dL 6.4-8.2 Serum or plasma albumin measurement (mass/volume) 4.3 g/dL 3.2-4.5 Magnesium - 05/20/17 07:36 Magnesium 2.0 mg/dL 1.8-2.4 Serum or plasma troponin i.cardiac measurement (mass/volume) - 05/20/17 07:36 Serum or plasma troponin i.cardiac measurement (mass/volume) < ng/ mL <0.30 Serum or plasma thyrotropin measurement by detection limit <=0.05 miu/l (units/ volume) - 05/20/17 07:36 Serum or plasma thyrotropin measurement by detection limit <=0.05 miu/l (units/ volume) 0.65 u[iU]/mL 0.35-4.94 Serum or plasma ethanol measurement (mass/volume) - 05/20/17 07:36 Serum or plasma ethanol measurement (mass/volume) < mg/dL <10 PT panel in platelet poor plasma by coagulation assay - 05/20/17 07:36 Prothrombin time (PT) in platelet poor plasma by coagulation assay 12.9 s 12.2-14.7 INR in platelet poor plasma or blood by coagulation assay 1.0 0.8-1.4 Activated partial thromboplastin time (aPTT) in platelet poor plasma bycoagulation assay - 05/20/17 07:36 Activated partial thromboplastin time (aPTT) in platelet poor plasma bycoagulation assay 29 s 24-35 Complete urinalysis with reflex to culture - 05/20/17 08:54 Urine color determination YELLOW NRG Urine clarity determination CLEAR NRG Urine pH measurement by test strip 6 5-9 Specific gravity of urine by test strip 1.010 1.016- 1.022 Urine protein assay by test strip, semi-quantitative NEGATIVE NEGATIVE Urine glucose detection by automated test strip NEGATIVE NEGATIVE Erythrocytes detection in urine sediment by light microscopy 1+ NEGATIVE Urine ketones detection by automated test strip NEGATIVE NEGATIVE Urine nitrite detection by test strip NEGATIVE NEGATIVE Urine total bilirubin detection by test strip NEGATIVE NEGATIVE Urine urobilinogen measurement by automated test strip (mass/volume) NORMAL NORMAL Urine leukocyte esterase detection by dipstick 2+ NEGATIVE Automated urine sediment erythrocyte count by microscopy (number/high power field) [HPF] NRG Automated urine sediment leukocyte count by microscopy (number/high power field ) [HPF] NRG Bacteria detection in urine sediment by light microscopy FEW NRG Squamous epithelial cells detection in urine sediment by light microscopy 10-25 NRG Crystals detection in urine sediment by light microscopy NONE NRG Casts detection in urine sediment by light microscopy NONE NRG Mucus detection in urine sediment by light microscopy SMALL NRG Complete urinalysis with reflex to culture YES NRG Bacterial urine culture - 05/20/17 08:54 Bacterial urine culture SEE COMMEN NRG COLONY COUNT . NRG FTX;REPORTABLE PLUS, NRG FREE TEXT ENTRY 2 MIXED GRAM POSTIVES <10,000 NRG Complete blood count (CBC) with automated white blood cell (WBC) differential - 06/19/17 17:23 Blood leukocytes automated count (number/volume) 8.6 10*3/uL 4.3-11.0 Blood erythrocytes automated count (number/volume) 4.90 10*6/uL 4.35-5.85 Venous blood hemoglobin measurement (mass/volume) 15.9 g/dL 11.5-16.0 Blood hematocrit (volume fraction) 47 % 35-52 Automated erythrocyte mean corpuscular volume 95 [foz_us] 80-99 Automated erythrocyte mean corpuscular hemoglobin (mass per erythrocyte) 32 pg 25-34 Automated erythrocyte mean corpuscular hemoglobin concentration measurement ( mass/volume) 34 g/dL 32-36 Automated erythrocyte distribution width ratio 12.8 % 10.0-14.5 Automated blood platelet count (count/volume) 217 10*3/uL 130-400 Automated blood platelet mean volume measurement 9.9 [foz_us] 7.4-10.4 Automated blood neutrophils/100 leukocytes 58 % 42-75 Automated blood lymphocytes/100 leukocytes 28 % 12-44 Blood monocytes/100 leukocytes 12 % 0-12 Automated blood eosinophils/100 leukocytes 2 % 0-10 Automated blood basophils/100 leukocytes 1 % 0-10 Blood neutrophils automated count (number/volume) 5.0 10*3 1.8-7.8 Blood lymphocytes automated count (number/volume) 2.4 10*3 1.0-4.0 Blood monocytes automated count (number/volume) 1.0 10*3 0.0-1.0 Automated eosinophil count 0.2 10*3/uL 0.0-0.3 Automated blood basophil count (count/volume) 0.0 10*3/uL 0.0-0.1 Encounters ACCT No. Visit Date/Time Discharge Status Pt. Type Provider Facility Loc./Unit Complaint [id number] 06/19/2017 16:55:00 06/19/2017 23:59:59 CLS Outpatient JESSY DELGADO DO [facility] RAD CONGESTION;TROUBLE BREATHING [id number] 05/23/2017 14:31:00 05/23/2017 23:59:59 CLS Outpatient ANURAG RESENDIZ MD [facility] RAD R10.31 RIGHT GROIN PAIN [id number] 05/20/2017 11:22:00 05/20/2017 16:00:00 DIS Outpatient ASTRID GODINEZ, ANURAG Goins [facility] CATH BP HIGH,DIZZY [id number] 04/18/2016 13:01:00 04/18/2016 23:59:59 CLS Outpatient KATY GUADARRAMA [facility] CARD CHEST PAIN SYNDROME,HTN,PALPITATIONS [id number] 08/19/2015 08:26:00 08/19/2015 23:59:59 CLS Outpatient JESSY DELGADO DO [facility] RAD ABD PAIN IN UPPER ABD FOR 6 MNTHS [id number] 07/29/2015 09:23:00 07/29/2015 23:59:59 CLS Outpatient NORM AVILA MD [facility] CARD RUQ PAIN [id number] 05/06/2017 10:45:00 Document Registration
[2017-11-29] MEDS ORDERED: KETOROLAC 60 MG/2 ML VIAL ONE (12:11)
[2017-11-29] MEDS ORDERED: ORPHENADRINE 60 MG/2 ML (NORFLEX) AMP IM ONE (12:15)
[2017-11-29] MEDS ORDERED: KETOROLAC 60 MG/2 ML VIAL IM ONE (12:15)
--- NOTE | 2017-11-29 12:17 | ED Fall/Injury ---
General Chief Complaint: Trauma-Non Activation Stated Complaint: L SHOULDER PAIN;FALL Source: patient Exam Limitations: no limitations History of Present Illness Date Seen by Provider: Nov 29, 2017 Time Seen by Provider: 12:14 Initial Comments To ER with left shoulder pain. This occurred after a fall on Saturday (today is Saturday). She states she was going down some steps at home early in the morning on Saturday before was light outside during the porch light on. She did not hit her head. She has no neck or back pain. She has no chest abdomen or pelvis pain. She has no other extremity pain. Occurred: other Severity: moderate Injuries/Pain Location: upper extremity Context: slipped Associated Symptoms (Fall): No Abdominal Pain, No Chest Pain, No Confusion, No Dizziness, No Headache, No Neck Pain Allergies and Home Medications Allergies Coded Allergies: Penicillins (Unverified Allergy, Unknown, 07/29/15) levofloxacin (Unverified Allergy, Unknown, 07/29/15) sulfamethoxazole (Unverified Allergy, Unknown, 07/29/15) trimethoprim (Unverified Allergy, Unknown, 07/29/15) Patient Home Medication List Home Medication List Reviewed: Yes Review of Systems Review of Systems Constitutional: see HPI Eyes: No Symptoms Reported Ears, Nose, Mouth, Throat: no symptoms reported Respiratory: no symptoms reported Cardiovascular: no symptoms reported Genitourinary: no symptoms reported Musculoskeletal: see HPI, joint pain Skin: no symptoms reported Psychiatric/Neurological: No Symptoms Reported Past Agarldf-Eypslr-Ogmphu Hx Patient Social History Alcohol Beverage of Choice: Vodka Type Used: Cigarettes 2nd Hand Smoke Exposure: No Past Medical History Surgeries: Yes (cystocele, skin ca removal) Hysterectomy Respiratory: No Cardiac: Yes Hypertension 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 oz. 64.357965sr; BMI Method:Stated General Appearance: WD/WN, no apparent distress HEENT: PERRL/EOMI, normal ENT inspection Neck: non-tender, full range of motion; No tender lateral, No tender midline Cardiovascular: regular rate, rhythm, no murmur Respiratory: chest non-tender, lungs clear, normal breath sounds, no respiratory distress, no accessory muscle use Gastrointestinal: normal bowel sounds, non tender, soft Extremities: other (limited range of motion to the left shoulder without bruising or obvious deformity. She is very tender to palpation however over the lateral aspect of the clavicle) Neurologic/Psychiatric: alert, normal mood/affect, oriented x 3 Skin: normal color, warm/dry Mosheim Coma Score Best Eye Response: (4) Open Spontaneously Best Verbal Response: (5) Oriented Best Motor Response: (6) Obeys Commands Mosheim Total: 15 Progress/Results/Core Measures Results/Orders My Orders Orders - JOSE ANGEL IZAGUIRRE APRN Orphenadrine Injection (Norflex Injectio (11/29/17 12:15) Ketorolac Injection (Toradol Injection) (11/29/17 12:15) Chest Pa/Lat (2 View) (11/29/17 12:12) Shoulder, Left, 3 Views (11/29/17 12:12) Orphenadrine Injection (Norflex Injectio (11/29/17 12:10) Ketorolac Injection (Toradol Injection) (11/29/17 12:11) Medications Given in ED Current Medications Medications Dose Ordered Sig/David Route Start Time Stop Time Status Last Admin Dose Admin Ketorolac Tromethamine 60 mg ONCE ONCE IM 11/29/17 12:15 11/29/17 12:16 DC 11/29/17 12:25 60 MG Orphenadrine Citrate 30 mg ONCE ONCE IM 11/29/17 12:15 11/29/17 12:16 DC 11/29/17 12:25 30 MG Vital Signs/I&O 11/29/17 12:15 Temp 98.2 Pulse 98 Resp 14 B/P (MAP) 167/102 (123) Pulse Ox 98 Departure Impression Primary Impression: Fx clavicle, acrom end-closed Disposition: 01 HOME, SELF-CARE Condition: Stable Departure-Patient Inst. Decision time for Depature: 12:42 Referrals: IRVING HE MD, RICHARD A DO (PCP/Family) Primary Care Physician ALESSANDRO MARTINEZ MD,PAO CALDERON,BROOKLYNN ANGEL,SUYAPA Fitzgerald MD Patient Instructions: Clavicle Fracture Add. Discharge Instructions: 1. return to Er for any concerns 2. wear the sling at all times except when showering or sleeping until otherwise directed by orthpedics 3. Call an orthopedist of your choosing tomorrow for an appointment to be seen. 4. Pain medication as directed All discharge instructions reviewed with patient and/or family. Voiced understanding. Scripts Tramadol HCl (Ultram) 50 Mg Tablet 50 MG PO Q6H PRN for PAIN-MODERATE, #20 TAB Prov: JOSE ANGEL IZAGUIRRE APRN 11/29/17 JOSE ANGEL IZAGUIRRE APRN Nov 29, 2017 12:17
[2017-11-29] MEDS ORDERED: TRAM-42 PO (12:44)
[2017-11-29 12:54] VITALS: BP 167/102
--- NOTE | 2017-11-29 13:08 | Diagnostic Imaging Report ---
INDICATION: Fall with left shoulder pain. AP, oblique, and lateral views of left shoulder are obtained. FINDINGS: There is a nondisplaced oblique fracture of the distal aspect of the left clavicle. There is no dislocation. Glenohumeral joint appears intact. There is a small amount of calcium adjacent to the greater tuberosity which may represent calcific tendinitis. IMPRESSION: Acute oblique nondisplaced fracture of distal clavicle. No other acute finding. Findings suspicious for mild calcific tendinitis. Dictated by: Dictated on workstation # [id number]
--- NOTE | 2017-11-29 13:09 | Diagnostic Imaging Report ---
CLINICAL INDICATION: Patient is status post fall on cement steps. Patient has left shoulder pain. EXAM: Chest x-ray, PA and lateral views. COMPARISON: X-ray of the left shoulder dated 11/29/2017. Chest x-ray dated 06/19/2017. FINDINGS: The lungs are clear. There is no pleural effusion or pneumothorax. Pulmonary vasculature and mediastinal structures are unremarkable. Cardiac silhouette is within normal limits. There is note of interval bony irregularity, which is nondisplaced, involving the lateral aspect of the left clavicle which correlates to fracture seen on comparison left shoulder x-ray. There are hypertrophic spurs involving the thoracic spine. IMPRESSION: 1: Nondisplaced fracture of the lateral aspect of the left clavicle. This is better seen on comparison x-ray of the left shoulder. 2: Otherwise, unremarkable chest x-ray exam for age. Dictated by: Dictated on workstation # [id number]
== END 2017-11-29 12:54 | disposition home or self-care (01) ==
LOC: EDUNIT# 12:05 → ER 12:06
DX: S42.012A Anterior displaced fracture of sternal end of left clavicle, initial encounter for closed fracture (principal); I10 Essential (primary) hypertension; K21.9 Gastro-esophageal reflux disease without esophagitis; F41.9 Anxiety disorder, unspecified; R40.2142 Coma scale, eyes open, spontaneous, at arrival to emergency department; R40.2252 Coma scale, best verbal response, oriented, at arrival to emergency department; R40.2362 Coma scale, best motor response, obeys commands, at arrival to emergency department; Z85.828 Personal history of other malignant neoplasm of skin; Z87.19 Personal history of other diseases of the digestive system; Z88.0 Allergy status to penicillin; Z88.2 Allergy status to sulfonamides; Z88.8 Allergy status to other drugs, medicaments and biological substances; Z90.710 Acquired absence of both cervix and uterus; W10.8XXA Fall (on) (from) other stairs and steps, initial encounter; Y92.009 Unspecified place in unspecified non-institutional (private) residence as the place of occurrence of the external cause
CPT/HCPCS: 71046; 73030

== ENCOUNTER → 2017-12-17 | Outpatient (CLI) | payer MEDICARE, OTHER ==
[~2017-12-17] MED LIST changes: +TRAM-42 PO
--- NOTE | 2017-12-17 13:29 | Diagnostic Imaging Report ---
INDICATION: Left shoulder injury and worsening pain. TIME OF EXAM: 12:20 p.m. Two views of the left shoulder demonstrate a fracture of the distal clavicle. No significant displacement or angulation is seen. There may be slight AC separation with the distal clavicular fracture fragment projecting slightly cephalad in relation to the acromion. The glenohumeral alignment is intact. Proximal humerus appears intact. IMPRESSION: Distal clavicle fracture with perhaps slight AC separation. Dictated by: Dictated on workstation # [id number]
== END ==
LOC: RAD 11:39
PROVIDERS: ATTEND Family Medicine
DX: S42.002A Fracture of unspecified part of left clavicle, initial encounter for closed fracture (principal)
CPT/HCPCS: 73000

== ENCOUNTER 2018-01-29 11:30 | Outpatient (RCR) | payer MEDICARE, OTHER | END 2018-04-02 16:12 | disposition home or self-care (01) | PROVIDERS: ATTEND Nurse Practitioner Family | DX: S42.002D Fracture of unspecified part of left clavicle, subsequent encounter for fracture with routine healing (principal); W19.XXXD Unspecified fall, subsequent encounter ==

== ENCOUNTER 2018-07-21 04:26 | Emergency (ER) | payer MEDICARE, OTHER ==
[~2018-07-21] VITALS: Ht 165.1 cm; Wt 70.3 kg
[2018-07-21] MEDS ORDERED: diphenhydrAMINE 50 MG/ML INJ (BENADRYL) IM ONE (04:45)
[2018-07-21] MEDS ORDERED: methylPREDNISolone 125 MG (Solu-MEDROL) VIAL IM ONE (04:45)
--- NOTE | 2018-07-21 04:52 | ED Integumentary General ---
General Chief Complaint: Allergic Reaction Stated Complaint: RASH/ HIVES Nursing Triage Note: AMBULATORY TO ED WITH C/O ITCHING/HIVES THAT STARTED LAST NIGHT ABOUT 1H AFTER EATING DINNER. STATES ATE NOTHING NEW OR DIFFERENT THAN WHAT SHES HAD BEFORE. STATES SHE WORKED IN YARD WITH [employer] YESTERDAY. DID NOT TAKE ANY BENADRYL. TRIED CALOMINE GEL BUT ONLY RELIEFT APPROX 10 MIN. Source: patient Exam Limitations: no limitations History of Present Illness Date Seen by Provider: July 21, 2018 Time Seen by Provider: 04:39 Initial Comments This 72-year-old woman presents to the emergency room with complaints of a pruritic rash that developed after eating supper tonight. Rash is primarily o citlalli the abdomen but there is some on her extremities as well. She denies any new foods, medications, or exposures. She also worked in the garden today trimming some bushes. She did not take any oral medications as she is supposed to be nothing by mouth for an EGD in [place] this morning. She did try some anti-itch gel which did not sufficiently relieve her rash or itching. She is now very tired because of not sleeping due to the itching. She denies any lip, tongue, or throat swelling. She has no shortness of breath. Allergies and Home Medications Allergies Coded Allergies: Penicillins (Unverified Allergy, Unknown, 07/29/15) levofloxacin (Unverified Allergy, Unknown, 07/29/15) sulfamethoxazole (Unverified Allergy, Unknown, 07/29/15) trimethoprim (Unverified Allergy, Unknown, 07/29/15) Home Medications Tramadol HCl 50 Mg Tablet, 50 MG PO Q6H PRN for PAIN-MODERATE Prescribed by: JOSE ANGEL IZAGUIRRE on 11/29/17 1244 Patient Home Medication List Home Medication List Reviewed: Yes Review of Systems Review of Systems Constitutional: no symptoms reported EENTM: no symptoms reported Respiratory: no symptoms reported Cardiovascular: no symptoms reported Gastrointestinal: no symptoms reported Genitourinary: no symptoms reported Musculoskeletal: no symptoms reported Skin: see HPI Psychiatric/Neurological: No Symptoms Reported Endocrine: No Symptoms Reported Past Ojtubtp-Xguikg-Ndxfwb Hx Past Med/Social Hx: Reviewed Nursing Past Med/Soc Hx Patient Social History Alcohol Use: Occasionally Uses Number of Drinks Today: FF Alcohol Beverage of Choice: Vodka Recreational Drug Use: No Type Used: Cigarettes 2nd Hand Smoke Exposure: No Recent Foreign Travel: No Contact w/Someone Who Travel: No Recent Infectious Disease Expo: No Recent Hopitalizations: No Past Medical History Surgeries: Yes (cystocele, skin ca removal) Hysterectomy Respiratory: No Cardiac: Yes Hypertension Neurological: No : 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 Genitourinary: No Gastrointestinal: Yes Gastroesophageal Reflux, Ulcer Musculoskeletal: No Endocrine: Yes (prediabetic controlled with diet) HEENT: No Cancer: Yes (skin excised from back) Skin Psychosocial: Yes Anxiety Blood Disorders: No Adverse Reaction/Blood Tranf: No Physical Exam Vital Signs Vital Signs - First Documented 07/21/18 07/21/18 04:31 05:30 Temp 97.7 Pulse 88 Resp 18 B/P (MAP) 163/96 (118) Pulse Ox 97 O2 Delivery Room Air Capillary Refill : Less Than 3 Seconds General Appearance: WD/WN, no apparent distress HEENT: normal ENT inspection Neck: normal inspection Cardiovascular: regular rate, rhythm, no edema, no murmur Respiratory: lungs clear, normal breath sounds, no respiratory distress Extremities: normal inspection, no pedal edema Neurologic/Psychiatric: infrastructure architect II-XII nml as tested, no motor/sensory deficits, alert, normal mood/affect, oriented x 3 Skin: warm/dry, rash (pruritic erythematous maculopapular rash on the trunk and extremities) Progress/Results/Core Measures Results/Orders My Orders Orders - SHAHID ELENA MD Methylprednisolone Sod Succ (Solu-Medrol (07/21/18 04:45) Diphenhydramine Injection (Benadryl Inje (07/21/18 04:45) Medications Given in ED Current Medications Medications Dose Ordered Sig/David Route Start Time Stop Time Status Last Admin Dose Admin Diphenhydramine HCl 25 mg ONCE ONCE IM 07/21/18 04:45 07/21/18 04:46 DC 07/21/18 04:51 25 MG Methylprednisolone Sodium Succinate 125 mg ONCE ONCE IM 07/21/18 04:45 07/21/18 04:46 DC 07/21/18 04:51 125 MG Vital Signs/I&O 07/21/18 07/21/18 04:31 05:30 Temp 97.7 97.7 Pulse 88 76 Resp 18 18 B/P (MAP) 163/96 (118) 155/88 (110) Pulse Ox 97 O2 Delivery Room Air Blood Pressure Mean: 118 Progress Progress Note : Progress Note Patient received injections of Solu-Medrol and Benadryl with significant improvement in symptoms. Oral steroids were not prescribed due to patient's significant acid reflux. Patient elected to cancel her EGD due to lack of sleep and discomfort with the itching. Departure Impression Primary Impression: Pruritic rash Disposition: HOME, SELF-CARE Condition: Improved Departure-Patient Inst. Decision time for Depature: 05:25 Referrals: BROOKLYNN CALDERON DO (PCP) Primary Care Physician Patient Instructions: Skin Rash, Food Allergy Add. Discharge Instructions: You may take Benadryl (diphenhydramine) up to 50 mg every 4 hours as needed for itching. Alternatively, you may use nondrowsy antihistamines such as Claritin (loratadine). Also take Pepcid (famotidine) 20 mg twice daily for the next few days. This may be purchased [id number]. You may use hydrocortisone topically to help with itch as well. Be mindful of possible triggers and avoid those in the future. Return to care if you have worsening symptoms. All discharge instructions reviewed with patient and/or family. Voiced understanding. SHAHID ELENA MD July 21, 2018 04:52
[2018-07-21 05:30] VITALS: BP 155/88
== END 2018-07-21 05:31 | disposition home or self-care (01) ==
LOC: EDUNIT# 04:26 → ER 04:28
DX: L29.9 Pruritus, unspecified (principal); I10 Essential (primary) hypertension; K21.9 Gastro-esophageal reflux disease without esophagitis; F41.9 Anxiety disorder, unspecified; Z87.19 Personal history of other diseases of the digestive system; Z88.0 Allergy status to penicillin; Z88.8 Allergy status to other drugs, medicaments and biological substances; Z88.2 Allergy status to sulfonamides; Z88.6 Allergy status to analgesic agent; Z85.828 Personal history of other malignant neoplasm of skin; Z90.710 Acquired absence of both cervix and uterus
CPT/HCPCS: 99284

== ENCOUNTER → 2018-09-26 | Outpatient (CLI) | payer MEDICARE, OTHER ==
--- NOTE | 2018-09-26 16:33 | Diagnostic Imaging Report ---
INDICATION: Pain and popping in the right thumb at its base. TECHNIQUE: Three views of the right hand. CORRELATION STUDY: None FINDINGS: The osseous structures are intact. The thumb is held in partial extension. There is mild asymmetric joint space narrowing and sclerosis with minimal osteophyte formation at the first carpometacarpal articulation. There is also asymmetric narrowing and sclerosis at the articulation of the distal scaphoid and trapezium. The remaining joint spaces otherwise appear fairly well-maintained and preserved. Soft tissues are unremarkable. IMPRESSION: 1. Asymmetric degenerative changes at the first carpometacarpal articulation. Negative for acute bony abnormality. Dictated by: Dictated on workstation # [id number]
== END ==
LOC: RAD 11:30
PROVIDERS: ATTEND Family Medicine
DX: M18.11 Unilateral primary osteoarthritis of first carpometacarpal joint, right hand (principal); M65.311 Trigger thumb, right thumb
CPT/HCPCS: 73130

== ENCOUNTER → 2019-04-20 | Outpatient (CLI) | payer MEDICARE, OTHER ==
[~2019-04-20] MED LIST changes: -METO-387; +MTP25TSR
[2019-04-20 12:42] LABS: BILIRUBIN,URINE NEGATIVE (NEGATIVE); CLARITY,URINE CLEAR; COLOR,URINE YELLOW; GLUCOSE, URINE (UA) NEGATIVE (NEGATIVE); KETONES,URINE NEGATIVE (NEGATIVE); LEUKOCYTE ESTERASE ,URINE NEGATIVE (NEGATIVE); NITRITE,URINE NEGATIVE (NEGATIVE); PH,URINE 5.5 (5-9); PROTEIN,URINE NEGATIVE (NEGATIVE)
[2019-04-20 12:54] LABS: BACTERIA,URINE TRACE /HPF; SQUAMOUS EPITHELIAL CELL,UR 25-50 /HPF; WBC,URINE RARE /HPF
[2019-04-20 12:55] LABS: GRANULAR CASTS,URINE RARE /LPF
== END ==
LOC: LAB 12:21
PROVIDERS: ATTEND Family Medicine
DX: N39.0 Urinary tract infection, site not specified (principal)
CPT/HCPCS: 81000

== ENCOUNTER → 2020-02-19 | Outpatient (CLI) | payer MEDICARE, OTHER ==
[~2020-02-19] MED LIST changes: +CATHETER FLUSH 10 ML SYR IV PRN; +HOLD METFORMIN - RECEIVED CONTRAST 20 ML VIAL IV SCH; +IOHEXOL 350 MG/ML 100 ML (OMNIPAQUE 350) VIAL IV ONE; +NS 100 ML (IVPB) BAG IV ONE; -PANT40TA3; +PANT40TA52
[2020-02-19 14:14] LABS: CREATININE SERUM 0.82 MG/DL (0.60-1.30); GFR ESTIMATED > 60
[2020-02-19 14:15] LABS: BUN/CREATININE RATIO 23
--- NOTE | 2020-02-19 16:04 | Diagnostic Imaging Report ---
PROCEDURE: CT abdomen and pelvis with contrast. TECHNIQUE: Multiple contiguous axial images were obtained through the abdomen and pelvis after administration of intravenous contrast. Auto Exposure Controls were utilized during the CT exam to meet ALARA standards for radiation dose reduction. All CT scans use one or more of the following dose optimizing techniques: automated exposure control, MA and/or KvP adjustment based on patient size and exam type or iterative reconstruction. INDICATION: Right-sided abdominal pain COMPARISON: 08/19/2015 FINDINGS: The visualized lung bases are clear. Small hiatal hernia. Diffusely decreased density of the liver. Calcified splenic granuloma. Otherwise, the spleen is unremarkable. The adrenal glands are unremarkable. The pancreas is unremarkable. The kidneys and bilateral ureters are unremarkable. Mild scattered vascular calcifications without aneurysmal dilatation of the abdominal aorta. The urinary bladder is decompressed, therefore not well evaluated. The uterus is not visualized, likely surgically absent. No abnormal adnexal mass lesion. Moderate colonic diverticulosis, particularly involving the sigmoid colon. No evidence of acute diverticulitis. No bowel obstruction or pneumatosis. Small duodenal diverticulum arising from the 4th portion of the duodenum without adjacent fat stranding. No significant adenopathy, free air, or free fluid in abdomen or pelvis. Scattered osseous degenerative changes without acute osseous abnormality. IMPRESSION: 1. Colonic diverticulosis without CT evidence of diverticulitis. 2. Fatty infiltration of the liver. 3. Small hiatal hernia. 4. Evidence of chronic granulomatous disease. Dictated by: Dictated on workstation # [id number]
== END ==
LOC: RAD 13:42
PROVIDERS: ATTEND Family Medicine
DX: K57.30 Diverticulosis of large intestine without perforation or abscess without bleeding (principal); K76.0 Fatty (change of) liver, not elsewhere classified; K44.9 Diaphragmatic hernia without obstruction or gangrene
CPT/HCPCS: 36415; 74177; 82565; 84520

== ENCOUNTER → 2020-02-24 | Outpatient (CLI) | payer MEDICARE, OTHER ==
[~2020-02-24] MED LIST changes: -HOLD METFORMIN - RECEIVED CONTRAST 20 ML VIAL IV SCH; -IOHEXOL 350 MG/ML 100 ML (OMNIPAQUE 350) VIAL IV ONE; -NS 100 ML (IVPB) BAG IV ONE
--- NOTE | 2020-02-24 11:11 | Diagnostic Imaging Report ---
INDICATION: Right upper quadrant pain. TECHNIQUE: The patient was administered 5.4 mCi of technetium 99M Choletec intravenously and imaging over the abdomen was performed. Next, at 45 minutes, the patient ingested 8 ounces of Ensure and the gallbladder ejection fraction was calculated. FINDINGS: There is homogeneous uptake of activity by the liver with prompt excretion of activity into the gallbladder and common duct. There is normal passage of activity into the small bowel. The gallbladder ejection fraction is normal at 62%. IMPRESSION: Normal HIDA scan and gallbladder ejection fraction. Dictated by: Dictated on workstation # [id number]
== END ==
LOC: CARD 09:00
PROVIDERS: ATTEND Family Medicine
DX: R10.11 Right upper quadrant pain (principal)
CPT/HCPCS: 78227; A9537

== ENCOUNTER → 2021-07-10 | Outpatient (CLI) | payer MEDICARE, OTHER ==
[~2021-07-10] MED LIST changes: -CATHETER FLUSH 10 ML SYR IV PRN; -FLUC150T2; +FLUC150T41
--- NOTE | 2021-07-10 14:14 | Diagnostic Imaging Report ---
INDICATION: TRAUMA TO LEFT ANKLE 3 WEEKS AGO pain COMPARISON: None. FINDINGS: 3 views of the left ankle were obtained. There is no acute fracture or dislocation. No focal osseous lesions are seen. The surrounding soft tissue structures are unremarkable. There are no radiopaque foreign bodies. IMPRESSION: 1. No acute fracture or dislocation in the left ankle. Dictated by: Dictated on workstation # [id number]
== END ==
LOC: RAD 12:24
PROVIDERS: ATTEND Family Medicine
DX: S99.912A Unspecified injury of left ankle, initial encounter (principal); X58.XXXA Exposure to other specified factors, initial encounter
CPT/HCPCS: 73610

== ENCOUNTER 2022-08-04 11:52 | Emergency (ER) | payer MEDICARE, OTHER ==
[~2022-08-04] VITALS: Ht 165 cm; Wt 73.0 kg
[2022-08-04 12:12] LABS: BASOPHILS # (AUTO) 0.1 10^3/uL (0.0-0.1); BASOPHILS % (AUTO) 1 % (0-10); EOSINOPHILS % (AUTO) 0 % (0-10); HEMATOCRIT 48 % (35-52); HEMOGLOBIN 16.6 g/dL (11.5-16.0); LYMPHOCYTES # (AUTO) 1.6 10^3/uL (1.0-4.0); LYMPHOCYTES % (AUTO) 18 % (12-44); MEAN CORPUSCULAR HEMOGLOBIN 33 pg (25-34); MEAN CORPUSCULAR HGB CONC 35 g/dL (32-36); MEAN CORPUSCULAR VOLUME 95 fL (80-99); MEAN PLATELET VOLUME 10.2 fL (9.0-12.2); MONOCYTES # (AUTO) 1.1 10^3/uL (0.0-1.0); MONOCYTES % (AUTO) 11 % (0-12); NEUTROPHILS # (AUTO) 6.4 10^3/uL (1.8-7.8); NEUTROPHILS % (AUTO) 70 % (42-75); PLATELET COUNT 222 10^3/uL (130-400); WHITE BLOOD COUNT 9.2 10^3/uL (4.3-11.0)
[2022-08-04 12:18] LABS: ALBUMIN 4.8 GM/DL (3.2-4.5); CHLORIDE 101 MMOL/L (98-107); POTASSIUM 4.4 MMOL/L (3.6-5.0); SODIUM 137 MMOL/L (135-145)
[2022-08-04 12:19] LABS: CALCIUM 10.8 MG/DL (8.5-10.1); PROTHROMBIN TIME PATIENT 13.2 SEC (12.2-14.7)
[2022-08-04 12:20] LABS: GLUCOSE 199 MG/DL (70-105); TOTAL PROTEIN 8.8 GM/DL (6.4-8.2)
[2022-08-04 12:21] LABS: CARBON DIOXIDE 22 MMOL/L (21-32)
[2022-08-04 12:22] LABS: BILIRUBIN,TOTAL 0.6 MG/DL (0.1-1.0)
[2022-08-04 12:24] LABS: ALKALINE PHOSPHATASE 98 U/L (40-136); CREATININE SERUM 0.99 MG/DL (0.60-1.30); GFR ESTIMATED 59
--- NOTE | 2022-08-04 12:24 | ED Chest Pain ---
General Chief Complaint: Cardiac/General Problems Stated Complaint: HEADACHE/DIZZINESS/HIGH BLOOD PRESSURE Nursing Triage Note: PT AMB TO [facility] 6 PT CO OF HTN, DIZZINESS, HAS TWINGES OF CHEST PAIN STATES HAS TIGHTNESS IN L CHEST AREA AND BY L EAR RATES 5/10. PT CO OF SOA. PT STATES HAS HAD SWEATING LAST NIGHT. PT HAS TAKEN AN EXTRA METOPORAL. Source: patient Exam Limitations: no limitations History of Present Illness Date Seen by Provider: Aug 04, 2022 Allergies and Home Medications Allergies Coded Allergies: Penicillins (Unverified Allergy, Unknown, 07/29/15) levofloxacin (Unverified Allergy, Unknown, 07/29/15) sulfamethoxazole (Unverified Allergy, Unknown, 07/29/15) trimethoprim (Unverified Allergy, Unknown, 07/29/15) Patient Home Medication List Alprazolam (Alprazolam) 0.5 Mg Tablet, (Reported) Entered as Reported by: HITESH NORMAN on 05/20/17 08 Fluconazole (Fluconazole) 150 Mg Tablet, (Reported) Entered as Reported by: HITESH NORMAN on 05/20/17 0813 Metoprolol Succinate (Metoprolol Succinate) 25 Mg Tab.er.24h, (Reported) Entered as Reported by: HITESH NORMAN on 05/20/17 0813 Pantoprazole Sodium (Pantoprazole Sodium) 40 Mg Tablet., (Reported) Entered as Reported by: HITESH NORMAN on 05/20/17 08 Sucralfate (Sucralfate) 1 Gm Tablet, (Reported) Entered as Reported by: HITESH NORMNA on 05/20/17 0813 Tramadol HCl (Ultram) 50 Mg Tablet, 50 MG PO Q6H PRN for PAIN-MODERATE Prescribed by: JOSE ANGEL IZAGUIRRE on 11/29/17 1244 Past Rhymbrx-Azbhlc-Dnrbnt Hx Patient Social History Tobacco Use?: Yes Tobacco type used: Cigarettes Smoking Status: Current Everyday Smoker Substance use?: No Alcohol Use?: Yes Alcohol Frequency: Rarely Pt feels they are or have been: No Immunizations Up To Date First/Initial COVID19 Vaccinat: YES Past Medical History Surgery/Hospitalization HX: ?DIABETES, HTN,HYST, CYSTOCELE SURG. 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 oz. 70.419856dw; 26.00 BMI Method:Stated Progress/Results/Core Measures Results/Orders Lab Results Laboratory Tests Test 08/04/22 12:04 08/04/22 13:04 08/04/22 14:12 Range/Units White Blood Count 9.2 4.3-11.0 10^3/uL Red Blood Count 5.03 3.80-5.11 10^6/uL Hemoglobin 16.6 H 11.5-16.0 g/dL Hematocrit 48 35-52 % Mean Corpuscular Volume 95 80-99 fL Mean Corpuscular Hemoglobin 33 25-34 pg Mean Corpuscular Hemoglobin Concent 35 32-36 g/dL Red Cell Distribution Width 12.2 10.0-14.5 % Platelet Count 222 130-400 10^3/uL Mean Platelet Volume 10.2 9.0-12.2 fL Immature Granulocyte % (Auto) 1 % Neutrophils (%) (Auto) 70 42-75 % Lymphocytes (%) (Auto) 18 12-44 % Monocytes (%) (Auto) 11 0-12 % Eosinophils (%) (Auto) 0 0-10 % Basophils (%) (Auto) 1 0-10 % Neutrophils # (Auto) 6.4 1.8-7.8 10^3/uL Lymphocytes # (Auto) 1.6 1.0-4.0 10^3/uL Monocytes # (Auto) 1.1 H 0.0-1.0 10^3/uL Eosinophils # (Auto) 0.0 0.0-0.3 10^3/uL Basophils # (Auto) 0.1 0.0-0.1 10^3/uL Immature Granulocyte # (Auto) 0.1 0.0-0.1 10^3/uL Prothrombin Time 13.2 12.2-14.7 SEC INR Comment 1.0 0.8-1.4 Activated Partial Thromboplast Time 32 24-35 SEC Sodium Level 137 135-145 MMOL/L Potassium Level 4.4 3.6-5.0 MMOL/L Chloride Level 101 98-107 MMOL/L Carbon Dioxide Level 22 21-32 MMOL/L Anion Gap 14 5-14 MMOL/L Blood Urea Nitrogen 18 7-18 MG/DL Creatinine 0.99 0.60-1.30 MG/DL Estimat Glomerular Filtration Rate 59 BUN/Creatinine Ratio 18 Glucose Level 199 H 70-105 MG/DL Calcium Level 10.8 H 8.5-10.1 MG/DL Corrected Calcium 8.5-10.1 MG/DL Magnesium Level 1.7 1.6-2.4 MG/DL Total Bilirubin 0.6 0.1-1.0 MG/DL Aspartate Amino Transf (AST/SGOT) 101 H 5-34 U/L Alanine Aminotransferase (ALT/SGPT) 145 H 0-55 U/L Alkaline Phosphatase 98 40-136 U/L Myoglobin 53.1 10.0-92.0 NG/ML Troponin I < 0.028 < 0.028 <0.028 NG/ML Total Protein 8.8 H 6.4-8.2 GM/DL Albumin 4.8 H 3.2-4.5 GM/DL Urine Color YELLOW Urine Clarity SL CLOUDY Urine pH 6.0 5-9 Urine Specific [place] 1.025 H 1.016-1.022 Urine Protein 1+ H NEGATIVE Urine Glucose (UA) NEGATIVE NEGATIVE Urine Ketones NEGATIVE NEGATIVE Urine Nitrite NEGATIVE NEGATIVE Urine Bilirubin NEGATIVE NEGATIVE Urine Urobilinogen 0.2 < = 1.0 MG/DL Urine Leukocyte Esterase 1+ H NEGATIVE Urine RBC (Auto) NEGATIVE NEGATIVE Urine RBC 0-2 /HPF Urine WBC 10-25 H /HPF Urine Squamous Epithelial Cells 2-5 /HPF Urine Crystals NONE /LPF Urine Bacteria LARGE H /HPF Urine Casts NONE /LPF Urine Mucus NEGATIVE /LPF Urine Culture Indicated YES My Orders Orders - SHAHID ELENA MD Ekg Tracing (08/04/22 12:02) Cbc With Automated Diff (08/04/22 12:07) Magnesium (08/04/22 12:07) Chest 1 View, Ap/Pa Only (08/04/22 12:07) Comprehensive Metabolic Panel (08/04/22 12:07) Myoglobin Serum (08/04/22 12:07) Protime With Inr (08/04/22 12:07) Partial Thromboplastin Time (08/04/22 12:07) O2 (08/04/22 12:07) Monitor-Rhythm Ecg Trace Only (08/04/22 12:07) Lipid Panel (08/05/22 06:00) Ed Iv/Invasive Line Start (08/04/22 12:07) Troponin I [place] (08/04/22 12:07) Nitroglycerin 0.4 Mg Btl 25's (Nitrostat (08/04/22 12:30) Ua Culture If Indicated (08/04/22 12:48) Urine Culture (08/04/22 13:04) Troponin I [place] (08/04/22 14:15) Medications Given in ED Current Medications Medications Dose Ordered Sig/David Route Start Time Stop Time Status Last Admin Dose Admin Nitroglycerin 0.4 mg UD PRN SL 08/04/22 12:30 08/04/22 12:37 0.4 MG Vital Signs/I&O 08/04/22 11:55 Temp 35.6 Pulse 87 Resp 18 B/P (MAP) 200/110 (140) Pulse Ox 97 Blood Pressure Mean: 140 Initial ECG Impression Date: Aug 04, 2022 Initial ECG Impression Time: 12:06 Initial ECG Rate: 88 Initial ECG Rhythm: Normal Sinus Initial ECG Intervals: Normal Initial ECG Impression: Normal Comment Normal sinus rhythm with no ST elevation or depression. No abnormal intervals or axis deviation. Departure Impression Primary Impression: Atypical chest pain Additional Impressions: History of hiatal hernia Urinary tract infection Qualified Codes: N39.0 - Urinary tract infection, site not specified Disposition: HOME, SELF-CARE Condition: Improved Departure-Patient Inst. Decision time for Depature: 15:16 Referrals: JESSY DELGADO DO (PCP/Family) Primary Care Physician Patient Instructions: Chest Pain, Hiatal hernia, Urinary Tract Infection, Adult ED Add. Discharge Instructions: Based on your work-up in the emergency room, it is unlikely that your chest pain is related to heart disease. It may be related to your hiatal hernia and acid reflux. I recommend restarting Carafate. It is best if used 4 times a day, about 30 minutes before eating and drinking at mealtimes and then again at bedtime. It is best taken in a slurry by either dissolving or crushing and mixing into a small amount of water. Alternatively, you may chew it and swallow with a sip of water. Continue taking Dexilant. Follow-up with your primary care provider and Dr. Gr with a phone call on Saturday to schedule follow-up. Consider trying melatonin purchased [id number] for your insomnia. Otherwise, discuss further treatment of insomnia with Dr. DELGADO. Complete your antibiotics as prescribed for treatment of urinary tract infection. Please have Dr. Delgado review urine culture results. Urine culture results should be available on Saturday afternoon or Saturday morning. Return to the ER if you have worsening symptoms despite following these instructions. Avoid the following that may worsen pain related to hiatal hernia and acid reflux: Eating large meals, eating close to bedtime, caffeine, chocolate, citrus fruits and juices, tomato products, mints, spicy foods, fatty/greasy foods, NSAID medications such as ibuprofen or naproxen, or anything else you know irritates your stomach. All discharge instructions reviewed with patient and/or family. Voiced understanding. Scripts Ciprofloxacin HCl (Ciprofloxacin HCl) 500 Mg Tablet 500 MG PO BID, #10 TAB Prov: SHAHID ELENA MD 08/04/22 Dexlansoprazole (Dexilant) 60 Mg Cap. 60 MG PO DAILY, #30 CAP Prov: SHAHID ELENA MD 08/04/22 SHAHID ELENA MD Aug 04, 2022 12:24
[2022-08-04 12:25] LABS: BUN/CREATININE RATIO 18
[2022-08-04 12:27] LABS: ALANINE AMINOTRANSFERASE 145 U/L (0-55); MAGNESIUM 1.7 MG/DL (1.6-2.4)
[2022-08-04] MEDS ORDERED: NITROGLYCERIN 0.4 MG SL TABS BTL 25'S SL PRN (12:30)
--- NOTE | 2022-08-04 12:51 | Diagnostic Imaging Report ---
EXAMINATION: Chest, 1 view. HISTORY: Chest pain. COMPARISON: 11/29/2017. FINDINGS: The lung volumes are normal. No focal consolidation is seen. No large pleural effusion or pneumothorax is seen. The cardiomediastinal silhouette is normal in size and contour. No acute osseous abnormality is seen. IMPRESSION: No acute pleuroparenchymal process. Dictated by: Dictated on workstation # [id number]
[2022-08-04 13:09] LABS: BILIRUBIN,URINE NEGATIVE (NEGATIVE); CLARITY,URINE SL CLOUDY; COLOR,URINE YELLOW; GLUCOSE, URINE (UA) NEGATIVE (NEGATIVE); KETONES,URINE NEGATIVE (NEGATIVE); LEUKOCYTE ESTERASE ,URINE 1+ (NEGATIVE); NITRITE,URINE NEGATIVE (NEGATIVE); PROTEIN,URINE 1+ (NEGATIVE)
[2022-08-04 13:23] LABS: BACTERIA,URINE LARGE /HPF; RBC,URINE 0-2 /HPF
[2022-08-04] MEDS ORDERED: DEXL60CA PO (15:22)
[2022-08-04] MEDS ORDERED: CIPR500T5 PO (15:23)
[2022-08-04 15:27] VITALS: BP 128/90
[2022-08-04] MEDS ORDERED: AMLO2.5T4 PO (21:01)
== END 2022-08-04 15:27 | disposition home or self-care (01) ==
LOC: EDUNIT# 11:52 → ER 11:54
DX: R07.89 Other chest pain (principal); N39.0 Urinary tract infection, site not specified; I10 Essential (primary) hypertension; F17.210 Nicotine dependence, cigarettes, uncomplicated; Z88.0 Allergy status to penicillin; Z88.2 Allergy status to sulfonamides; Z79.899 Other long term (current) drug therapy; Z87.738 Personal history of other specified (corrected) congenital malformations of digestive system
CPT/HCPCS: 36415; 71045; 80053; 81000; 83735; 83874; 84484; 85025; 85610; 85730; 87077; 87088; 87186; 93005; 93041

== ENCOUNTER 2022-08-04 20:18 | Emergency (ER) | payer MEDICARE, OTHER ==
[~2022-08-04] VITALS: Ht 162 cm; Wt 72.0 kg
[~2022-08-04 20:18] MED LIST changes: +CIPR500T5 PO; +DEXL60CA PO
[2022-08-04] MEDS ORDERED: AMLO2.5T4 PO (21:01)
--- NOTE | 2022-08-04 21:01 | ED General ---
General Chief Complaint: Cardiac/General Problems Stated Complaint: HIGH BLOOD PRESSURE Source of Information: Patient Exam Limitations: No Limitations History of Present Illness Date Seen by Provider: Aug 04, 2022 Time Seen by Provider: 20:50 Initial Comments 76-year-old female presents to the emergency department today for elevated blood pressures. She was seen earlier today for the same. Notably earlier she was having chest pains during that time described as brief twinges in her left chest. She is no longer having chest pains. She does describe a mild headache. No visual changes. No shortness of breath. No changes in urination or abdominal pain. She takes 50 mg of metoprolol daily and took it this morning. She was found to have a bladder infection this morning and is on antibiotics. All other systems reviewed and negative except documented per HPI. Voice recognition software was used to help create this chart Allergies and Home Medications Allergies Coded Allergies: Penicillins (Unverified Allergy, Unknown, 07/29/15) levofloxacin (Unverified Allergy, Unknown, 08/04/22) Patient reports tolerating Cipro well. sulfamethoxazole (Unverified Allergy, Unknown, 07/29/15) trimethoprim (Unverified Allergy, Unknown, 07/29/15) Patient Home Medication List Home Medication List Reviewed: Yes Alprazolam (Alprazolam) 0.5 Mg Tablet, (Reported) Entered as Reported by: HITESH NORMAN on 05/20/17812 Amlodipine Besylate (Amlodipine Besylate) 2.5 Mg Tablet, 2.5 MG PO DAILY Prescribed by: DEANA MONTANEZ MD on 08/04/22 210 Ciprofloxacin HCl (Ciprofloxacin HCl) 500 Mg Tablet, 500 MG PO BID Prescribed by: SHAHID GARCIA on 08/04/22 1523 Dexlansoprazole (Dexilant) 60 Mg Cap.bp, 60 MG PO DAILY Prescribed by: SHAHID GARCIA on 08/04/22 1522 Fluconazole (Fluconazole) 150 Mg Tablet, (Reported) Entered as Reported by: HITESH NORMAN on 05/20/17 08 Metoprolol Succinate (Metoprolol Succinate) 25 Mg Tab.er.24h, (Reported) Entered as Reported by: HITESH NORMAN on 05/20/17 08 Pantoprazole Sodium (Pantoprazole Sodium) 40 Mg Tablet.dr (Reported) Entered as Reported by: HITESH NORMAN on 05/20/17 0813 Sucralfate (Sucralfate) 1 Gm Tablet, (Reported) Entered as Reported by: HITESH NORMAN on 05/20/17 0813 Tramadol HCl (Ultram) 50 Mg Tablet, 50 MG PO Q6H PRN for PAIN-MODERATE Prescribed by: JOSE ANGEL IZAGUIRRE on 11/29/17 1244 Review of Systems Review of Systems Constitutional: see HPI Past Yulenjk-Xhhpzp-Mffmzy Hx Patient Social History Tobacco Use?: No Use of E-Cig and/or Vaping dev: No Substance use?: No Alcohol Use?: No Immunizations Up To Date First/Initial COVID19 Vaccinat: YES Past Medical History Surgery/Hospitalization HX: ?DIABETES, HTN,HYST, CYSTOCELE SURG. 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 oz. 70.918979cx; 26.00 BMI Method:Stated General Appearance: No Apparent Distress, WD/WN Eyes: Bilateral Eye Normal Inspection, Bilateral Eye PERRL, Bilateral Eye EOMI HEENT: Normal ENT Inspection, Pharynx Normal Neck: Full Range of Motion, Normal Inspection, Non Tender, Supple Respiratory: Chest Non Tender, Lungs Clear, Normal Breath Sounds, No Accessory Muscle Use, No Respiratory Distress Cardiovascular: Regular Rate, Rhythm, No Murmur, Normal Peripheral Pulses Gastrointestinal: Normal Bowel Sounds, Non Tender, Soft Extremity: Normal Capillary Refill, Normal Inspection, Normal Range of Motion, Non Tender, No Calf Tenderness, No Pedal Edema Neurologic/Psychiatric: Alert, Oriented x3, No Motor/Sensory Deficits Skin: Normal Color, Warm/Dry Progress/Results/Core Measures Suspected Sepsis SIRS Temperature: Pulse: Respiratory Rate: Blood Pressure / Mean: Results/Orders My Orders Orders - LISSETHDEANA Amlodipine Tablet (Norvasc Tablet) (08/04/22 21:15) Medications Given in ED Current Medications Medications Dose Ordered Sig/David Route Start Time Stop Time Status Last Admin Dose Admin Amlodipine Besylate 2.5 mg ONCE ONCE PO 08/04/22 21:15 08/04/22 21:16 DC 08/04/22 21:14 2.5 MG Vital Signs/I&O 08/04/22 08/04/22 20:49 22:04 Temp 36.7 Pulse 91 76 Resp 20 16 B/P (MAP) 190/105 (133) 155/90 Pulse Ox 96 96 O2 Delivery Room Air Room Air Capillary Refill : Less Than 3 Seconds Departure Communication (Admissions) Blood pressures trending down with amlodipine. Advised to keep a log of her blood pressures twice daily. She had a full work-up earlier today which was completely negative. She has no new symptoms whatsoever, just simply concerned about her blood pressure. She does seem quite anxious and worried about a myriad of medication interactions if I have a new blood pressure medicine. I did prescribe her a few days of amlodipine recommendations to keep a log and follow-up with her primary doctor to see if this helps. She is given strict precautions on hypotension and to stop this if she develops any symptoms. Impression Primary Impression: Essential hypertension Disposition: HOME, SELF-CARE Condition: Stable Departure-Patient Inst. Referrals: JESSY DELGADO DO (PCP/Family) Primary Care Physician Patient Instructions: High Blood Pressure (DC) Add. Discharge Instructions: Add amlodipine daily to your high blood pressure medicines. Take this in the evening. We have given you your first dose tonight. This is a very low dose so it may not dramatically decrease your blood pressure but it should help some. Keep a log of your blood pressures twice daily and take these to your primary doctor in the next week for further evaluation and treatment recommendations. If you have any severe chest pain return to the emergency department immediately. If you have any changes in your vision he should also return. Follow-up with your primary doctor for any nonemergent needs. Stop amlodipine immediately if you have any dizziness with position changes or feel like you are going to pass out. All discharge instructions reviewed with patient and/or family. Voiced understanding. Scripts Amlodipine Besylate (Amlodipine Besylate) 2.5 Mg Tablet 2.5 MG PO DAILY for 7 Days, #7 TAB Prov: DEANA MONTANEZ DO 08/04/22 DEANA MONTANEZ DO Aug 04, 2022 21:01
[2022-08-04] MEDS ORDERED: amLODIPine 2.5MG (NORVASC) TAB PO ONE (21:15)
[2022-08-04 22:04] VITALS: BP 155/90
== END 2022-08-04 22:04 | disposition home or self-care (01) ==
LOC: EDUNIT# 20:18 → ER 20:20
DX: I10 Essential (primary) hypertension (principal); N30.90 Cystitis, unspecified without hematuria; Z28.311 Partially vaccinated for COVID-19
CPT/HCPCS: 99283

== ENCOUNTER 2022-12-10 11:54 | Emergency (ER) | payer MEDICARE, OTHER ==
[~2022-12-10 11:54] MED LIST changes: +AMLO2.5T4 PO
[2022-12-10] MEDS ORDERED: NS IV 1000 ML 1,000 ML IV SCH (12:15)
[2022-12-10] MEDS ORDERED: ONDANSETRON INJECTION 4 MG/2 ML (SDV) IVP ONE ×2 (12:15→15:15)
--- NOTE | 2022-12-10 12:21 | ED Abdominal Pain ---
General Chief Complaint: Abdominal/GI Problems Stated Complaint: DIARRHEA | VOMITING Nursing Triage Note: PT AMB TO RM 6 PT CO OF N/V/D FOR APPROX 1 WEEK. PT HAS ABD SPASMS.RATES DISCOMFORT 10/10 Source of Information: Patient (RACHANAGABRIELLA) History of Present Illness Date Seen by Provider: Dec 10, 2022 Time Seen by Provider: 12:06 Initial Comments Patient presents to the ED with a little over a week history of N/V/D. She was recently given antibiotics on 11/26 for a bladder infection at that time. She says that she feels about the same now as she did when she had the prior bladder infection. She says that her N/V/D went away the 5 days that she was on antibiotics, but symptoms came back soon after. She says that her vomiting has been mucous and bile mostly, and her diarrhea has had mucus in it. She denies any blood in her vomiting and diarrhea currently but had blood in diarrhea late last week. She rates her pain as a 10/10 this morning but it is currently an 8/10 that is most concentrated in her RUQ. She says that she still has her gallbladder but does not believe that she still has her appendix. She has a history of diverticulitis and diverticulosis. Timing/Duration: 1 Week Severity/Quality: Mild Location: RUQ Radiation: No Radiation Activities at Onset: None Associated Symptoms: Denies Symptoms (GABRIELLA REICH) Allergies and Home Medications Allergies Coded Allergies: Penicillins (Unverified Allergy, Unknown, 07/29/15) levofloxacin (Unverified Allergy, Unknown, 08/04/22) Patient reports tolerating Cipro well. sulfamethoxazole (Unverified Allergy, Unknown, 07/29/15) trimethoprim (Unverified Allergy, Unknown, 07/29/15) Patient Home Medication List Home Medication List Reviewed: Yes (GABRIELLA REICH) Alprazolam (Alprazolam) 0.5 Mg Tablet, (Reported) Entered as Reported by: HITESH NORMAN on 05/20/17 0813 Amlodipine Besylate (Amlodipine Besylate) 2.5 Mg Tablet, 2.5 MG PO DAILY Prescribed by: DEANA MONTANEZ MD on 08/04/222100 Ciprofloxacin HCl (Ciprofloxacin HCl) 500 Mg Tablet, 500 MG PO BID Prescribed by: SHAHID GARCIA on 08/04/22 1523 Dexlansoprazole (Dexilant) 60 Mg bp, 60 MG PO DAILY Prescribed by: SHAHID GARCIA on 08/04/22 1522 Dicyclomine HCl (Dicyclomine HCl) 20 Mg Tablet, 20 MG PO TID Prescribed by: Santiago Edmond on 12/10/22 1417 Fluconazole (Fluconazole) 150 Mg Tablet, (Reported) Entered as Reported by: HITESH NORMAN on 05/20/17 0813 Metoprolol Succinate (Metoprolol Succinate) 25 Mg Tab.er.24h, (Reported) Entered as Reported by: HITESH NORMAN on 05/20/17 0813 Ondansetron (Ondansetron Odt) 4 Mg Tab.rapdis, 4 MG SL Q6H PRN for NAUSEA/VOMITING Prescribed by: Santiago Edmond on 12/10/22 1417 Pantoprazole Sodium (Pantoprazole Sodium) 40 Mg Tablet.dr, (Reported) Entered as Reported by: HITESH NORMAN on 05/20/17 0813 Promethazine HCl (Promethazine Tablet) 25 Mg Tablet, 25 MG PO Q6H PRN for NAUSEA/VOMITING Prescribed by: Santiago Edmond on 12/10/22 1417 Sucralfate (Sucralfate) 1 Gm Tablet, (Reported) Entered as Reported by: HITSEH NORMAN on 05/20/17 0813 Tramadol HCl (Ultram) 50 Mg Tablet, 50 MG PO Q6H PRN for PAIN-MODERATE Prescribed by: JOSE ANGEL IZAGUIRRE on 11/29/17 1244 Review of Systems Review of Systems Constitutional: no symptoms reported EENTM: No Symptoms Reported Respiratory: No Symptoms Reported Cardiovascular: No Symptoms Reported Gastrointestinal: Abdominal Pain, Diarrhea, Nausea, Vomiting Genitourinary: No Symptoms Reported Musculoskeletal: no symptoms reported Skin: no symptoms reported (GABRIELLA REICH) All Other Systems Reviewed Negative Unless Noted: Yes (GABRIELLA REICH) Past Nxvobyt-Oymxyn-Vpevbx Hx Patient Social History Tobacco Use?: Yes Tobacco type used: Cigarettes Smoking Status: Current Everyday Smoker Substance use?: No Alcohol Use?: Yes Alcohol type: Hard Liquor Alcohol Frequency: Couple times a week Pt feels they are or have been: No (GABRIELLA REICH) Immunizations Up To Date First/Initial COVID19 Vaccinat: YES Second COVID19 Vaccination Corey: YES Third COVID19 Vaccination Date: YES (GABRIELLA REICH) Past Medical History Surgery/Hospitalization HX: ?DIABETES, HTN,HYST, CYSTOCELE SURG. Surgeries: Yes (cystocele, skin ca removal) Hysterectomy Respiratory: No Cardiac: Yes Hypertension Neurological: No [employer] History: Hysterectomy Genitourinary: No Gastrointestinal: Yes Gastroesophageal Reflux, Ulcer Musculoskeletal: No Endocrine: Yes (prediabetic controlled with diet) HEENT: No Cancer: Yes (skin excised from back) Skin Psychosocial: Yes Anxiety Blood Disorders: No Adverse Reaction/Blood Tranf: No (GABRIELLA REICH) Physical Exam Vital Signs Vital Signs - First Documented 12/10/22 12:05 Pulse 103 Resp 25 B/P (MAP) 143/93 (110) Pulse Ox 97 (DETAR,SANTIAGO W DO) Vital Signs Capillary Refill : Less Than 3 Seconds (GABRIELLA REICH) Height/Weight/BMI Height: 5'5.00" Weight: 155lbs. oz. [id number]; 27.00 BMI Method:Stated General Appearance: WD/WN, no apparent distress Respiratory: lungs clear, normal breath sounds, no respiratory distress, no accessory muscle use Cardiovascular: regular rate, rhythm, no edema, no murmur Gastrointestinal: soft, tenderness (RUQ) Back: no CVA tenderness Neurologic/Psychiatric: alert, normal mood/affect, oriented x 3 (GABRIELLA REICH) Progress/Results/Core Measures Results/Orders Lab Results Laboratory Tests Test 12/10/22 12:20 12/10/22 13:00 Range/Units White Blood Count 7.2 4.3-11.0 10^3/uL Red Blood Count 4.54 3.80-5.11 10^6/uL Hemoglobin 15.5 11.5-16.0 g/dL Hematocrit 44 35-52 % Mean Corpuscular Volume 98 80-99 fL Mean Corpuscular Hemoglobin 34 25-34 pg Mean Corpuscular Hemoglobin Concent 35 32-36 g/dL Red Cell Distribution Width 12.0 10.0-14.5 % Platelet Count 180 130-400 10^3/uL Mean Platelet Volume 10.4 9.0-12.2 fL Immature Granulocyte % (Auto) 0 % Neutrophils (%) (Auto) 61 42-75 % Lymphocytes (%) (Auto) 23 12-44 % Monocytes (%) (Auto) 15 H 0-12 % Eosinophils (%) (Auto) 0 0-10 % Basophils (%) (Auto) 1 0-10 % Neutrophils # (Auto) 4.3 1.8-7.8 10^3/uL Lymphocytes # (Auto) 1.7 1.0-4.0 10^3/uL Monocytes # (Auto) 1.1 H 0.0-1.0 10^3/uL Eosinophils # (Auto) 0.0 0.0-0.3 10^3/uL Basophils # (Auto) 0.1 0.0-0.1 10^3/uL Immature Granulocyte # (Auto) 0.0 0.0-0.1 10^3/uL Sodium Level 137 135-145 MMOL/L Potassium Level 3.7 3.6-5.0 MMOL/L Chloride Level 102 98-107 MMOL/L Carbon Dioxide Level 21 21-32 MMOL/L Anion Gap 14 5-14 MMOL/L Blood Urea Nitrogen 10 7-18 MG/DL Creatinine 0.79 0.60-1.30 MG/DL Estimat Glomerular Filtration Rate 77 BUN/Creatinine Ratio 13 Glucose Level 195 H 70-105 MG/DL Calcium Level 9.6 8.5-10.1 MG/DL Corrected Calcium 9.3 8.5-10.1 MG/DL Total Bilirubin 1.1 H 0.1-1.0 MG/DL Aspartate Amino Transf (AST/SGOT) 238 H 5-34 U/L Alanine Aminotransferase (ALT/SGPT) 242 H 0-55 U/L Alkaline Phosphatase 89 40-136 U/L Total Protein 8.2 6.4-8.2 GM/DL Albumin 4.4 3.2-4.5 GM/DL Urine Color YELLOW Urine Clarity SL CLOUDY Urine pH 7.0 5-9 Urine Specific [place] 1.010 L 1.016-1.022 Urine Protein NEGATIVE NEGATIVE Urine Glucose (UA) NEGATIVE NEGATIVE Urine Ketones NEGATIVE NEGATIVE Urine Nitrite NEGATIVE NEGATIVE Urine Bilirubin NEGATIVE NEGATIVE Urine Urobilinogen 0.2 < = 1.0 MG/DL Urine Leukocyte Esterase TRACE H NEGATIVE Urine RBC (Auto) NEGATIVE NEGATIVE Urine RBC NONE /HPF Urine WBC 2-5 /HPF Urine Squamous Epithelial Cells 5-10 /HPF Urine Crystals NONE /LPF Urine Bacteria TRACE /HPF Urine Casts NONE /LPF Urine Mucus NEGATIVE /LPF Urine Culture Indicated NO (SANTIAGO EDMOND DO) My Orders Orders - SANTIAGO EDMOND DO Cbc And Automated Diff (12/10/22 12:14) Comprehensive Metabolic Panel (12/10/22 12:14) Ua Culture If Indicated (12/10/22 12:14) Stool Culture (12/10/22 12:14) Fecal Wbc (12/10/22 12:14) C Difficile Ag + Toxin A/B. (12/10/22 12:14) Ns Iv 1000 Ml (Ns Iv 1000 Ml) (12/10/22 12:15) Ondansetron Injection (Ondansetron Inj (12/10/22 12:15) Ct Abdomen/Pelvis W (12/10/22 12:32) Iohexol Injection (Omnipaque 350 Mg/Ml 1 (12/10/22 13:15) Ns (Ivpb) 100 Ml (Sodium Chloride 0.9% 1 (12/10/22 13:15) (SANTIAGO EMDOND DO) Medications Given in ED Current Medications Medications Dose Ordered Sig/David Route Start Time Stop Time Status Last Admin Dose Admin Iohexol 100 ml ONCE ONCE IV 12/10/22 13:15 12/10/22 13:16 DC 12/10/22 13:33 80 ML Ondansetron HCl 4 mg ONCE ONCE IVP 12/10/22 12:15 12/10/22 12:17 DC 12/10/22 12:30 4 MG Sodium Chloride 100 ml ONCE ONCE IV 12/10/22 13:15 12/10/22 13:16 DC 12/10/22 13:33 80 ML (SANTIAGO EDMOND DO) Vital Signs/I&O 12/10/22 12:05 Pulse 103 Resp 25 B/P (MAP) 143/93 (110) Pulse Ox 97 (SANTIAGO EDMOND DO) Blood Pressure Mean: 131 Progress Progress Note : Time: 12:15 Progress Note 12:15 Patient presents to the ED with a little over a week history of N/V/D. She was recently given antibiotics on 11/26 for a bladder infection at that time. She says that she feels about the same now as she did when she had the prior bladder infection. She says that her N/V/D went away the 5 days that she was on antibiotics, but symptoms came back soon after. She says that her vomiting has been mucous and bile mostly, and her diarrhea has had mucus in it. She denies any blood in her vomiting and diarrhea at this time. She rates her pain as a 10/10 that is most concentrated in her RUQ. She says that she still has her gallbladder but does not believe that she still has her appendix. She has a history of diverticulosis and litis. Plan is CBC, CMP, urinalysis and then possible CT on the basis of what UA shows. Give Zofran and IV fluids during this time. (GABRIELLA REICH) Progress Note : Progress Note 1411 CT negative IMPRESSION: 1. No identified acute abnormality in the abdomen or pelvis. 2. Diffuse fatty infiltration of the liver. 3. Diverticulosis without evidence of acute diverticulitis. UA shows trace leukocytes no indication for culture no evidence of UTI. Lab work essentially normal other than elevated liver enzymes which patient states has had in the past prompting evaluation of her gallbladder recently which was negative for any acute pathology. We will treat with Bentyl and Zofran also provide prescription for Phenergan if Zofran does not take away nausea. Advise close follow-up with primary care return for problems or concerns. Patient has not had any bowel movements while she has been in the department. Least likely suspecting C. difficile at this time. Will send home with collection container for her to use at her convenience. Results to her primary (SANTIAGO EDMOND DO) Diagnostic Imaging Diagonstic Imaging: CT (See above) (SANTIAGO EDMOND DO) Departure Impression Primary Impression: Abdominal pain Qualified Codes: R10.11 - Right upper quadrant pain Additional Impressions: Nausea and vomiting Qualified Codes: R11.2 - Nausea with vomiting, unspecified Diverticulosis Transaminitis Disposition: HOME, SELF-CARE Condition: Stable Departure-Patient Inst. Referrals: JESSY DELGADO DO (PCP/Family) Primary Care Physician Patient Instructions: Diverticulosis, Nausea and Vomiting, Adult, Nonalcoholic Fatty Liver Disease (DC) Scripts Promethazine HCl (Promethazine Tablet) 25 Mg Tablet 25 MG PO Q6H PRN for NAUSEA/VOMITING for 7 Days, #28 TAB Prov: SANTIAGO EDMOND DO 12/10/22 Ondansetron (Ondansetron Odt) 4 Mg Tab.rapdis 4 MG SL Q6H PRN for NAUSEA/VOMITING for 7 Days, #3 TAB Prov: SANTIAGO EDMOND DO 12/10/22 Dicyclomine HCl (Dicyclomine HCl) 20 Mg Tablet 20 MG PO TID for 10 Days, #3 TAB Prov: SANTIAGO EDMOND DO 12/10/22 GABRIELLA REICH Dec 10, 2022 12:21 SANTIAGO EDMOND DO Dec 10, 2022 14:16
[2022-12-10 12:26] LABS: BASOPHILS # (AUTO) 0.1 10^3/uL (0.0-0.1); BASOPHILS % (AUTO) 1 % (0-10); EOSINOPHILS % (AUTO) 0 % (0-10); HEMATOCRIT 44 % (35-52); HEMOGLOBIN 15.5 g/dL (11.5-16.0); LYMPHOCYTES # (AUTO) 1.7 10^3/uL (1.0-4.0); LYMPHOCYTES % (AUTO) 23 % (12-44); MEAN CORPUSCULAR HEMOGLOBIN 34 pg (25-34); MEAN CORPUSCULAR HGB CONC 35 g/dL (32-36); MEAN CORPUSCULAR VOLUME 98 fL (80-99); MEAN PLATELET VOLUME 10.4 fL (9.0-12.2); MONOCYTES # (AUTO) 1.1 10^3/uL (0.0-1.0); MONOCYTES % (AUTO) 15 % (0-12); NEUTROPHILS # (AUTO) 4.3 10^3/uL (1.8-7.8); NEUTROPHILS % (AUTO) 61 % (42-75); PLATELET COUNT 180 10^3/uL (130-400); WHITE BLOOD COUNT 7.2 10^3/uL (4.3-11.0)
[2022-12-10 12:38] LABS: ALBUMIN 4.4 GM/DL (3.2-4.5); POTASSIUM 3.7 MMOL/L (3.6-5.0)
[2022-12-10 12:39] LABS: CALCIUM 9.6 MG/DL (8.5-10.1)
[2022-12-10 12:41] LABS: TOTAL PROTEIN 8.2 GM/DL (6.4-8.2)
[2022-12-10 12:42] LABS: BILIRUBIN,TOTAL 1.1 MG/DL (0.1-1.0)
[2022-12-10 12:44] LABS: CREATININE SERUM 0.79 MG/DL (0.60-1.30)
[2022-12-10] MEDS ORDERED: NS 100 ML (IVPB) BAG IV ONE (13:15)
[2022-12-10] MEDS ORDERED: IOHEXOL 350 MG/ML 100 ML (OMNIPAQUE 350) VIAL IV ONE (13:15)
[2022-12-10 13:26] LABS: CLARITY,URINE SL CLOUDY; COLOR,URINE YELLOW; PROTEIN,URINE NEGATIVE (NEGATIVE)
[2022-12-10 13:27] LABS: BACTERIA,URINE TRACE /HPF; BILIRUBIN,URINE NEGATIVE (NEGATIVE); GLUCOSE, URINE (UA) NEGATIVE (NEGATIVE); KETONES,URINE NEGATIVE (NEGATIVE); LEUKOCYTE ESTERASE ,URINE TRACE (NEGATIVE); NITRITE,URINE NEGATIVE (NEGATIVE)
--- NOTE | 2022-12-10 14:06 | Diagnostic Imaging Report ---
PROCEDURE: CT abdomen and pelvis with contrast. TECHNIQUE: Multiple contiguous axial images were obtained through the abdomen and pelvis after administration of intravenous contrast. Auto Exposure Controls were utilized during the CT exam to meet ALARA standards for radiation dose reduction. All CT scans use one or more of the following dose optimizing techniques: automated exposure control, MA and/or KvP adjustment based on patient size and exam type or iterative reconstruction. DATE: December 10, 2022. INDICATION: 77-year-old female, nausea, vomiting, diarrhea, and abdominal pain. COMPARISON: CT abdomen/pelvis February 19, 2020. FINDINGS: There is mild dependent atelectasis in the lung bases. The heart is not enlarged. There is no identified pericardial effusion. There is diffuse fatty infiltration of the liver. The liver is unremarkable in size and contour. There is no identified liver lesion. The main, right, and left portal veins are patent. The gallbladder is unremarkable. There is no intrahepatic or extrahepatic bile duct dilation. The main pancreatic duct is not abnormally dilated. Unremarkable appearance of the pancreatic parenchyma. The spleen is not enlarged. Splenic calcifications likely relate to prior granulomatous disease. The adrenal glands are unremarkable. There are subcentimeter low-attenuation right renal lesions, too small to characterize. The urinary collecting systems are not distended. There is no identified ureteral stone. There are pelvic calcifications, compatible with phleboliths. The urinary bladder is unremarkable. The uterus is not seen and may be surgically absent. There is diverticulosis without evidence of acute diverticulitis. The intestinal tract is not distended. There is no free intraperitoneal air. There is no drainable fluid collection. There is no free fluid in the abdomen or pelvis. There are atherosclerotic calcifications. There is a retroaortic left renal vein. There is no identified abnormally enlarged lymph node in the abdomen or pelvis which meets CT size criteria for adenopathy. There are multilevel degenerative changes of the spine. IMPRESSION: 1. No identified acute abnormality in the abdomen or pelvis. 2. Diffuse fatty infiltration of the liver. 3. Diverticulosis without evidence of acute diverticulitis. Dictated by: Dictated on workstation # [id number]
[2022-12-10] MEDS ORDERED: PROM25TA14 PO (14:17)
[2022-12-10] MEDS ORDERED: DICY20TA PO (14:17)
[2022-12-10] MEDS ORDERED: ONDA4TAB11 SL (14:17)
[2022-12-10 15:25] VITALS: BP 152/93
== END 2022-12-10 15:25 | disposition home or self-care (01) ==
LOC: EDUNIT# 11:54 → ER 11:56
DX: K57.90 Diverticulosis of intestine, part unspecified, without perforation or abscess without bleeding (principal); R74.01 Elevation of levels of liver transaminase levels; R10.11 Right upper quadrant pain; F17.210 Nicotine dependence, cigarettes, uncomplicated; Z87.19 Personal history of other diseases of the digestive system; Z88.0 Allergy status to penicillin; Z88.2 Allergy status to sulfonamides
CPT/HCPCS: 36415; 74177; 80053; 81000; 85025